=== PATIENT | male | born 1955 | race Caucasian/White ===

== ENCOUNTER 2021-08-13 01:23 | Observation (INO) | payer MEDICARE, SELFPAY ==
[2021-08-13] MEDS ORDERED: Aspirin 325 MG TAB ONE (01:54)
[2021-08-13] MEDS ORDERED: Nitroglycerin 2% Ointment 1 INCH/1 GM Packet ONE (01:54)
[2021-08-13 02:03] LABS: #Basophils 0.1 thou/uL (0.0-0.2); #Eosinphils 0.2 thou/uL (0.0-0.7); #Lymphocytes 2.3 thou/uL (1.20-3.40); #Monocytes 0.6 thou/uL (0.11-0.59); #Neutrophils 3.7 thou/uL (1.40-6.50); %Basophils 0.9 % (0.0-1.0); %Eosinophils 3.5 % (0.0-10.0); %Lymphocytes 33.2 % (21.0-51.0); %Monocytes 9.2 % (0.0-10.0); %Neutrophils 53.2 % (42.0-75.0); Hemoglobin 18.6 g/dL (14.0-18.0); Mean Corpuscular HGB CONC 35.1 g/dL (32.0-36.0); Mean Corpuscular Hemoglobin 30.8 pg (27.0-31.0); Mean Corpuscular Volume 87.6 fL (78.0-98.0); Mean Platelet Volume 8.1 fL (7.4-10.4); Platelet Count 151 thou/uL (130-400); RBC Distribution Width 12.8 % (11.5-14.5); Red Blood Cell (RBC) Count 6.05 mill/uL (4.70-6.10); White Blood Cell (WBC) Count 6.9 thou/uL (4.8-10.8)
[2021-08-13 02:22] LABS: ALT (SGPT) 20 U/L (8-55); AST (SGOT) 15 U/L (5-34); Albumin 3.5 g/dL (3.4-4.8); Alkaline Phosphatase 94 U/L (40-110); Anion Gap 13 mmol/L (10-20); BUN (Urea Nitrogen) 14 mg/dL (8.4-25.7); Calc. Creatinine Clearance 0 mL/min (70-130); Carbon Dioxide 21 mmol/L (23-31); Chloride 110 mmol/L (98-107); Globulin 2.8 g/dL (2.4-3.5); Glucose 180 mg/dL (80-115); Potassium 3.8 mmol/L (3.5-5.1); Protein, Total 6.3 g/dL (5.8-8.1); Sodium 140 mmol/L (136-145)
[2021-08-13 02:44] LABS: CKMB 2.1 ng/mL (0-6.6)
[2021-08-13] MEDS ORDERED: Nitroglycerin 0.4 MG TAB (25 Tab Bottle) SL PRN (03:16)
[2021-08-13] MEDS ORDERED: Acetaminophen 325 MG TAB PO PRN (03:16)
[2021-08-13] MEDS ORDERED: Ondansetron PF 4 MG/2 ML Vial IVP PRN (03:16)
[2021-08-13] MEDS ORDERED: HumaLOG 300 UNITS/3 ML VIAL SC PRN (03:19)
[2021-08-13] MEDS ORDERED: Dextrose 5% in Water 1,000 ML IV PRN (03:19)
[2021-08-13] MEDS ORDERED: Dextrose 50% Abboject 50 ML SYRINGE SLOW IVP PRN (03:19)
[2021-08-13 04:56] LABS: Hemoglobin A1c 8.2 % (4.0-6.0)
[2021-08-13 05:05] LABS: Anion Gap 14 mmol/L (10-20); BUN (Urea Nitrogen) 13 mg/dL (8.4-25.7); Calc. Creatinine Clearance 0 mL/min (70-130); Calcium 9.3 mg/dL (7.8-10.44); Carbon Dioxide 20 mmol/L (23-31); Cardiac Risk 5.5 (Less than 4.5); Chloride 109 mmol/L (98-107); Cholesterol 216 mg/dl (< 200 Desired); Glucose 147 mg/dL (80-115); HDL Cholesterol 39 mg/dL (>60 Neg Risk); LDL Cholesterol, Calculated 150 mg/dL; Potassium 4.1 mmol/L (3.5-5.1); Sodium 139 mmol/L (136-145); Triglycerides 136 mg/dL (Less than 150)
[2021-08-13 05:44] LABS: #Eosinphils 0.3 thou/uL (0.0-0.7); #Lymphocytes 2.6 thou/uL (1.20-3.40); #Monocytes 0.6 thou/uL (0.11-0.59); #Neutrophils 3.7 thou/uL (1.40-6.50); %Basophils 0.6 % (0.0-1.0); %Eosinophils 3.5 % (0.0-10.0); %Lymphocytes 36.4 % (21.0-51.0); %Monocytes 8.6 % (0.0-10.0); Hemoglobin 19.8 g/dL (14.0-18.0); Mean Corpuscular HGB CONC 33.2 g/dL (32.0-36.0); Mean Corpuscular Hemoglobin 30.3 pg (27.0-31.0); Mean Corpuscular Volume 91.4 fL (78.0-98.0); Mean Platelet Volume 8.7 fL (7.4-10.4); Platelet Count 152 thou/uL (130-400); RBC Distribution Width 12.8 % (11.5-14.5); Red Blood Cell (RBC) Count 6.52 mill/uL (4.70-6.10); White Blood Cell (WBC) Count 7.2 thou/uL (4.8-10.8)
[2021-08-13 06:14] LABS: Troponin I 0.051 ng/mL (< 0.028)
[2021-08-13 08:37] LABS: Troponin I 0.048 ng/mL (< 0.028)
[2021-08-13 10:01] VITALS: BMI 33.0
[2021-08-13 10:55] LABS: SARS-CoV-2 NAA Rapid Test Not Detected (NotDetected)
[2021-08-13] MEDS ORDERED: hydrALAZINE 20 MG/ML VIAL SLOW IVP SCH (11:15)
[2021-08-13] MEDS: Carvedilol 3.125 MG TAB PO SCH ×2 (14:52→17:40)
[2021-08-13] MEDS: Aspirin Chewable 81 MG TAB PO SCH (14:52)
[2021-08-13] MEDS: Enoxaparin Sodium 40 MG/0.4 ML SYRINGE SC SCH (14:52)
[2021-08-13] MEDS: HumaLOG 300 UNITS/3 ML VIAL SC PRN (17:37)
[2021-08-13] MEDS ORDERED: Atorvastatin Calcium 40 MG TAB PO SCH (21:00)
[2021-08-14 05:37] LABS: #Basophils 0.1 thou/uL (0.0-0.2); #Eosinphils 0.2 thou/uL (0.0-0.7); #Monocytes 0.7 thou/uL (0.11-0.59); #Neutrophils 3.1 thou/uL (1.40-6.50); %Basophils 1.3 % (0.0-1.0); %Eosinophils 3.5 % (0.0-10.0); %Lymphocytes 33.2 % (21.0-51.0); %Monocytes 10.9 % (0.0-10.0); %Neutrophils 51.1 % (42.0-75.0); Hemoglobin 18.5 g/dL (14.0-18.0); Mean Corpuscular HGB CONC 34.8 g/dL (32.0-36.0); Mean Corpuscular Hemoglobin 30.8 pg (27.0-31.0); Mean Corpuscular Volume 88.7 fL (78.0-98.0); Platelet Count 152 thou/uL (130-400); RBC Distribution Width 12.7 % (11.5-14.5); Red Blood Cell (RBC) Count 6.01 mill/uL (4.70-6.10); White Blood Cell (WBC) Count 6.1 thou/uL (4.8-10.8)
[2021-08-14 06:03] LABS: Anion Gap 10 mmol/L (10-20); BUN (Urea Nitrogen) 17 mg/dL (8.4-25.7); Calc. Creatinine Clearance 84 mL/min (70-130); Calcium 8.9 mg/dL (7.8-10.44); Carbon Dioxide 22 mmol/L (23-31); Chloride 105 mmol/L (98-107); Glucose 319 mg/dL (80-115); Potassium 4.2 mmol/L (3.5-5.1); Sodium 133 mmol/L (136-145)
[2021-08-14] MEDS: HumaLOG 300 UNITS/3 ML VIAL SC PRN (06:48)
[2021-08-14 07:51] VITALS: BP 133/61; TEMP 97.4
[2021-08-14] MEDS ORDERED: HumaLOG 300 UNITS/3 ML VIAL SC PRN (08:04)
[2021-08-14] MEDS: Aspirin Chewable 81 MG TAB PO SCH (08:52)
[2021-08-14] MEDS: Carvedilol 3.125 MG TAB PO SCH (08:52)
[2021-08-14] MEDS: Enoxaparin Sodium 40 MG/0.4 ML SYRINGE SC SCH (08:53)
[2021-08-14] MEDS ORDERED: NPH, Human Insulin Isophane 300 UNIT/3 ML VIAL SC SCH ×2 (09:00)
[2021-08-14] MEDS ORDERED: Loratadine 10 MG TAB PO SCH (09:00)
== END 2021-08-14 10:20 | disposition home or self-care (01) ==
LOC: ERS 01:23 → ERHOLD 03:07 → 2SW 12:13
PROVIDERS: ADMIT Internal Medicine; ATTEND Internal Medicine
DX: R07.2 Precordial pain (principal); R06.02 Shortness of breath; R42 Dizziness and giddiness; I12.9 Hypertensive chronic kidney disease with stage 1 through stage 4 chronic kidney disease, or unspecified chronic kidney disease; E11.22 Type 2 diabetes mellitus with diabetic chronic kidney disease; N18.2 Chronic kidney disease, stage 2 (mild); E78.5 Hyperlipidemia, unspecified; I25.10 Atherosclerotic heart disease of native coronary artery without angina pectoris; Z20.822 Contact with and (suspected) exposure to COVID-19; Z79.4 Long term (current) use of insulin; Z79.82 Long term (current) use of aspirin; Z95.1 Presence of aortocoronary bypass graft; Z95.5 Presence of coronary angioplasty implant and graft; Z86.73 Personal history of transient ischemic attack (TIA), and cerebral infarction without residual deficits
CPT/HCPCS: 36415; 36416; 71045; 78452; 80048; 80053; 80061; 82553; 83036; 84484; 85025; 90471; 90732; 93005; 93017; 94760; 96372; A9500; G0009; G0378; J1650; J1815; U0002

== ENCOUNTER 2021-08-16 18:50 | Inpatient (IN) | payer MEDICARE, SELFPAY ==
[~2021-08-16 18:50] MED LIST: Iopamidol 370 76% 100 ML VIAL ONE
[2021-08-16 19:21] LABS: #Basophils 0.1 thou/uL (0.0-0.2); #Eosinphils 0.2 thou/uL (0.0-0.7); #Lymphocytes 2.1 thou/uL (1.20-3.40); #Monocytes 0.7 thou/uL (0.11-0.59); #Neutrophils 5.1 thou/uL (1.40-6.50); %Basophils 0.8 % (0.0-1.0); %Eosinophils 2.8 % (0.0-10.0); %Monocytes 8.5 % (0.0-10.0); %Neutrophils 61.9 % (42.0-75.0); Hemoglobin 18.8 g/dL (14.0-18.0); Mean Corpuscular HGB CONC 34.9 g/dL (32.0-36.0); Mean Corpuscular Hemoglobin 30.7 pg (27.0-31.0); Mean Corpuscular Volume 88.1 fL (78.0-98.0); Platelet Count 171 thou/uL (130-400); RBC Distribution Width 12.6 % (11.5-14.5); Red Blood Cell (RBC) Count 6.14 mill/uL (4.70-6.10); White Blood Cell (WBC) Count 8.2 thou/uL (4.8-10.8)
[2021-08-16 19:42] LABS: ALT (SGPT) 21 U/L (8-55); AST (SGOT) 18 U/L (5-34); Albumin 3.9 g/dL (3.4-4.8); Alkaline Phosphatase 101 U/L (40-110); Anion Gap 14 mmol/L (10-20); BUN (Urea Nitrogen) 14 mg/dL (8.4-25.7); Bilirubin, Total 1.7 mg/dL (0.2-1.2); Calc. Creatinine Clearance 0 mL/min (70-130); Calcium 9.2 mg/dL (7.8-10.44); Carbon Dioxide 21 mmol/L (23-31); Chloride 105 mmol/L (98-107); Globulin 2.8 g/dL (2.4-3.5); Glucose 302 mg/dL (80-115); Lipase 29 U/L (8-78); Potassium 4.5 mmol/L (3.5-5.1); Protein, Total 6.7 g/dL (5.8-8.1); Sodium 135 mmol/L (136-145)
[2021-08-16] MEDS ORDERED: Nitroglycerin 2% Ointment 1 INCH/1 GM Packet ONE (20:02)
[2021-08-16] MEDS ORDERED: Aspirin Chewable 81 MG TAB ONE (20:29)
[2021-08-16] MEDS ORDERED: Enoxaparin Sodium 100 MG/ML SYRINGE ONE (20:29)
[2021-08-16] MEDS ORDERED: Ondansetron ODT 4 MG TAB SL PRN (20:30)
[2021-08-16] MEDS ORDERED: Ondansetron PF 4 MG/2 ML Vial IVP PRN (20:30)
[2021-08-16] MEDS ORDERED: Acetaminophen 325 MG TAB PO PRN (20:30)
[2021-08-16] MEDS ORDERED: Dextrose 5% in Water 1,000 ML IV PRN (21:55)
[2021-08-16] MEDS ORDERED: HumaLOG 300 UNITS/3 ML VIAL SC PRN (21:55)
[2021-08-16] MEDS ORDERED: Nitroglycerin 0.4 MG TAB (25 Tab Bottle) SL PRN (21:55)
[2021-08-16] MEDS ORDERED: Zolpidem Tartrate 5 MG TAB PO PRN (21:55)
[2021-08-16] MEDS ORDERED: Dextrose 50% Abboject 50 ML SYRINGE SLOW IVP PRN (21:55)
[2021-08-16] MEDS ORDERED: hydrALAZINE 20 MG/ML VIAL SLOW IVP PRN (21:55)
[2021-08-16] MEDS ORDERED: Morphine 2 MG/ML VIAL SLOW IVP PRN (21:55)
[2021-08-16 23:09] VITALS: BMI 31.6
[2021-08-16] MEDS: Sodium Chloride 0.9% 1,000 ML IV SCH (23:27)
[2021-08-17 00:02] LABS: Troponin I 0.043 ng/mL (< 0.028)
[2021-08-17 02:26] LABS: Troponin I 0.128 ng/mL (< 0.028)
[2021-08-17 05:24] LABS: #Eosinphils 0.3 thou/uL (0.0-0.7); #Lymphocytes 2.2 thou/uL (1.20-3.40); #Monocytes 0.6 thou/uL (0.11-0.59); #Neutrophils 4.1 thou/uL (1.40-6.50); %Basophils 0.5 % (0.0-1.0); %Eosinophils 3.5 % (0.0-10.0); %Lymphocytes 30.1 % (21.0-51.0); %Monocytes 8.8 % (0.0-10.0); Hemoglobin 18.1 g/dL (14.0-18.0); Mean Corpuscular HGB CONC 34.4 g/dL (32.0-36.0); Mean Corpuscular Hemoglobin 30.7 pg (27.0-31.0); Mean Corpuscular Volume 89.3 fL (78.0-98.0); Mean Platelet Volume 8.8 fL (7.4-10.4); Platelet Count 160 thou/uL (130-400); RBC Distribution Width 12.4 % (11.5-14.5); Red Blood Cell (RBC) Count 5.89 mill/uL (4.70-6.10); White Blood Cell (WBC) Count 7.1 thou/uL (4.8-10.8)
[2021-08-17 05:51] LABS: ALT (SGPT) 19 U/L (8-55); AST (SGOT) 18 U/L (5-34); Albumin 3.3 g/dL (3.4-4.8); Alkaline Phosphatase 87 U/L (40-110); Anion Gap 11 mmol/L (10-20); BUN (Urea Nitrogen) 12 mg/dL (8.4-25.7); Bilirubin, Total 1.4 mg/dL (0.2-1.2); Calc. Creatinine Clearance 90 mL/min (70-130); Calcium 8.8 mg/dL (7.8-10.44); Carbon Dioxide 21 mmol/L (23-31); Chloride 108 mmol/L (98-107); Globulin 2.9 g/dL (2.4-3.5); Glucose 140 mg/dL (80-115); Potassium 3.9 mmol/L (3.5-5.1); Protein, Total 6.2 g/dL (5.8-8.1); Sodium 136 mmol/L (136-145)
[2021-08-17] MEDS ORDERED: Enoxaparin Sodium 40 MG/0.4 ML SYRINGE SC SCH (09:00)
[2021-08-17] MEDS: Carvedilol 6.25 MG TAB PO SCH ×2 (09:15→17:43)
[2021-08-17] MEDS: Famotidine 20 MG TAB PO SCH ×2 (09:15→20:04)
[2021-08-17] MEDS: Nicotine 21 MG PATCH TD SCH (09:15)
[2021-08-17] MEDS: Aspirin Chewable 81 MG TAB PO SCH (09:15)
[2021-08-17] MEDS: Clopidogrel Bisulfate 75 MG TAB PO SCH (09:15)
[2021-08-17] MEDS: NPH, Human Insulin Isophane 300 UNIT/3 ML VIAL SC SCH ×2 (12:08→21:22)
[2021-08-17] MEDS ORDERED: Communication Order-Pharmacy FS SCH (17:00)
[2021-08-17] MEDS: Sodium Chloride 0.9% 1,000 ML IV SCH (17:44)
[2021-08-17] MEDS: Atorvastatin Calcium 40 MG TAB PO SCH (20:04)
[2021-08-17] MEDS: HumaLOG 300 UNITS/3 ML VIAL SC PRN (21:23)
[2021-08-18] MEDS: Nitroglycerin 0.4mg/Hour PATCH TD SCH (00:33)
[2021-08-18] MEDS: Sodium Chloride 0.9% 1,000 ML IV SCH ×2 (09:22→22:30)
[2021-08-18] MEDS: Famotidine 20 MG TAB PO SCH ×2 (09:22→19:52)
[2021-08-18] MEDS: Carvedilol 6.25 MG TAB PO SCH ×2 (09:22→18:03)
[2021-08-18] MEDS: Nicotine 21 MG PATCH TD SCH (09:22)
[2021-08-18] MEDS: Aspirin Chewable 81 MG TAB PO SCH (09:22)
[2021-08-18] MEDS: Clopidogrel Bisulfate 75 MG TAB PO SCH (09:22)
[2021-08-18] MEDS: NPH, Human Insulin Isophane 300 UNIT/3 ML VIAL SC SCH ×2 (11:16→21:09)
[2021-08-18] MEDS ORDERED: Iopamidol 370 76% 100 ML VIAL ONE (12:12)
[2021-08-18] MEDS ORDERED: Lidocaine 1% (PF) 30 ML VIAL ONE (14:18)
[2021-08-18] MEDS ORDERED: Midazolam HCl 2 mg/2 ml Vial ONE ×2 (14:57→16:13)
[2021-08-18] MEDS ORDERED: hydrALAZINE 20 MG/ML VIAL ONE (15:56)
[2021-08-18] MEDS ORDERED: Heparin 10,000 UNITS/ 10 ML VIAL ONE (16:09)
[2021-08-18] MEDS ORDERED: Carvedilol 3.125 MG TAB ONE (18:01)
[2021-08-18] MEDS ORDERED: Carvedilol 6.25 MG TAB ONE (18:01)
[2021-08-18] MEDS: Atorvastatin Calcium 40 MG TAB PO SCH (19:51)
[2021-08-18] MEDS: TICAGRELOR 90 MG TABLET PO SCH (19:52)
[2021-08-19] MEDS: Nitroglycerin 0.4mg/Hour PATCH TD SCH ×3 (00:07→21:56)
[2021-08-19] MEDS ORDERED: Sodium Chloride 0.65% Nasal 44 ML BOT EA NARE PRN (01:27)
[2021-08-19 05:00] LABS: #Eosinphils 0.2 thou/uL (0.0-0.7); #Lymphocytes 1.5 thou/uL (1.20-3.40); #Monocytes 0.7 thou/uL (0.11-0.59); #Neutrophils 5.4 thou/uL (1.40-6.50); %Basophils 0.6 % (0.0-1.0); %Eosinophils 2.1 % (0.0-10.0); %Lymphocytes 19.8 % (21.0-51.0); %Monocytes 8.8 % (0.0-10.0); %Neutrophils 68.7 % (42.0-75.0); Hemoglobin 18.1 g/dL (14.0-18.0); Mean Corpuscular HGB CONC 34.9 g/dL (32.0-36.0); Mean Corpuscular Hemoglobin 31.1 pg (27.0-31.0); Mean Corpuscular Volume 89.1 fL (78.0-98.0); Mean Platelet Volume 8.5 fL (7.4-10.4); Platelet Count 157 thou/uL (130-400); RBC Distribution Width 12.2 % (11.5-14.5); Red Blood Cell (RBC) Count 5.81 mill/uL (4.70-6.10); White Blood Cell (WBC) Count 7.8 thou/uL (4.8-10.8)
[2021-08-19 05:22] LABS: ALT (SGPT) 19 U/L (8-55); AST (SGOT) 14 U/L (5-34); Albumin 3.3 g/dL (3.4-4.8); Alkaline Phosphatase 85 U/L (40-110); Anion Gap 13 mmol/L (10-20); BUN (Urea Nitrogen) 15 mg/dL (8.4-25.7); Bilirubin, Total 1.5 mg/dL (0.2-1.2); Calc. Creatinine Clearance 80 mL/min (70-130); Calcium 9.1 mg/dL (7.8-10.44); Carbon Dioxide 18 mmol/L (23-31); Chloride 109 mmol/L (98-107); Glucose 256 mg/dL (80-115); Potassium 4.2 mmol/L (3.5-5.1); Protein, Total 6.3 g/dL (5.8-8.1); Sodium 136 mmol/L (136-145)
[2021-08-19] MEDS: HumaLOG 300 UNITS/3 ML VIAL SC PRN (07:19)
[2021-08-19] MEDS ORDERED: Carvedilol 6.25 MG TAB PO SCH (08:15)
[2021-08-19] MEDS: Sodium Chloride 0.9% 1,000 ML IV SCH ×2 (09:03→19:48)
[2021-08-19] MEDS: TICAGRELOR 90 MG TABLET PO SCH (09:04)
[2021-08-19] MEDS: Empagliflozin 10 MG TAB PO SCH (09:04)
[2021-08-19] MEDS: Aspirin Chewable 81 MG TAB PO SCH (09:04)
[2021-08-19] MEDS: Nicotine 21 MG PATCH TD SCH (09:04)
[2021-08-19] MEDS: Famotidine 20 MG TAB PO SCH ×2 (09:04→19:43)
[2021-08-19] MEDS: Carvedilol 6.25 MG TAB PO SCH ×2 (09:10→16:08)
[2021-08-19] MEDS: NPH, Human Insulin Isophane 300 UNIT/3 ML VIAL SC SCH ×2 (12:26→21:17)
[2021-08-19] MEDS: Atorvastatin Calcium 40 MG TAB PO SCH (19:43)
[2021-08-20 07:22] VITALS: TEMP 98.1
[2021-08-20] MEDS: Aspirin Chewable 81 MG TAB PO SCH (08:37)
[2021-08-20] MEDS: Carvedilol 6.25 MG TAB PO SCH (08:39)
[2021-08-20] MEDS: Empagliflozin 10 MG TAB PO SCH (08:39)
[2021-08-20] MEDS: Famotidine 20 MG TAB PO SCH (08:39)
[2021-08-20 08:40] VITALS: BP 135/94
[2021-08-20] MEDS: Nicotine 21 MG PATCH TD SCH (08:40)
[2021-08-20] MEDS: NPH, Human Insulin Isophane 300 UNIT/3 ML VIAL SC SCH (08:46)
[2021-08-20] MEDS ORDERED: Lisinopril 5 MG TAB PO SCH (09:00)
[2021-08-20] MEDS ORDERED: Clopidogrel Bisulfate 75 MG TAB PO SCH (09:00)
== END 2021-08-20 11:25 | disposition home or self-care (01) | DRG 247 ==
LOC: ERS 18:50 → 2SW 20:23 → OBSVTOIN 08-17 16:56
PROVIDERS: ADMIT Internal Medicine; ATTEND Internal Medicine
PROC: 027034Z Dilation of Coronary Artery, One Artery with Drug-eluting Intraluminal Device, Percutaneous Approach (ICD-10-PCS; principal; 2021-08-18)
PROC: 4A023N7 Measurement of Cardiac Sampling and Pressure, Left Heart, Percutaneous Approach (ICD-10-PCS; 2021-08-18)
PROC: B2151ZZ Fluoroscopy of Left Heart using Low Osmolar Contrast (ICD-10-PCS; 2021-08-18)
PROC: B2131ZZ Fluoroscopy of Multiple Coronary Artery Bypass Grafts using Low Osmolar Contrast (ICD-10-PCS; 2021-08-18)
DX: I25.10 Atherosclerotic heart disease of native coronary artery without angina pectoris (principal); N17.9 Acute kidney failure, unspecified; Z20.822 Contact with and (suspected) exposure to COVID-19; M79.642 Pain in left hand; M79.641 Pain in right hand; N18.30 Chronic kidney disease, stage 3 unspecified; E11.22 Type 2 diabetes mellitus with diabetic chronic kidney disease; I12.9 Hypertensive chronic kidney disease with stage 1 through stage 4 chronic kidney disease, or unspecified chronic kidney disease; N28.89 Other specified disorders of kidney and ureter; E78.5 Hyperlipidemia, unspecified; I44.0 Atrioventricular block, first degree; I44.7 Left bundle-branch block, unspecified; F17.220 Nicotine dependence, chewing tobacco, uncomplicated; Z95.1 Presence of aortocoronary bypass graft; I69.311 Memory deficit following cerebral infarction; Z79.4 Long term (current) use of insulin; Z79.82 Long term (current) use of aspirin; Z79.899 Other long term (current) drug therapy; Z95.5 Presence of coronary angioplasty implant and graft; I25.2 Old myocardial infarction; Z98.890 Other specified postprocedural states; H54.7 Unspecified visual loss; R09.81 Nasal congestion
CPT/HCPCS: 36415; 36416; 71045; 71275; 74174; 78452; 80048; 80053; 80061; 82553; 83036; 83690; 84484; 85025; 85347; 90471; 90732; 92928; 93005; 93010; 93017; 93459; 93798; 94760; 96372; 99152; 99153; A9500; C1874; C9600; G0009; G0378; J0360; J1644; J1650; J1815; J2001; J2250; J7050; Q9967; U0002

== ENCOUNTER 2021-11-13 06:12 | Emergency (ER) | payer MEDICARE ==
[2021-11-13 07:23] LABS: #Eosinphils 0.1 thou/uL (0.0-0.7); #Lymphocytes 1.1 thou/uL (1.20-3.40); #Monocytes 0.6 thou/uL (0.11-0.59); #Neutrophils 8.5 thou/uL (1.40-6.50); %Basophils 0.3 % (0.0-1.0); %Eosinophils 0.6 % (0.0-10.0); %Lymphocytes 10.7 % (21.0-51.0); %Monocytes 5.7 % (0.0-10.0); %Neutrophils 82.7 % (42.0-75.0); Mean Corpuscular HGB CONC 34.4 g/dL (32.0-36.0); Mean Corpuscular Hemoglobin 30.6 pg (27.0-31.0); Mean Corpuscular Volume 88.7 fL (78.0-98.0); Mean Platelet Volume 8.8 fL (7.4-10.4); Platelet Count 166 thou/uL (130-400); RBC Distribution Width 12.9 % (11.5-14.5); Red Blood Cell (RBC) Count 6.22 mill/uL (4.70-6.10); White Blood Cell (WBC) Count 10.3 thou/uL (4.8-10.8)
[2021-11-13] MEDS ORDERED: Ondansetron PF 4 MG/2 ML Vial ONE (07:25)
[2021-11-13] MEDS ORDERED: Fentanyl 100 MCG/2 ML VIAL ONE ×2 (07:25→08:49)
[2021-11-13 07:39] LABS: ALT (SGPT) 14 U/L (8-55); AST (SGOT) 17 U/L (5-34); Albumin 3.7 g/dL (3.4-4.8); Alkaline Phosphatase 94 U/L (40-110); Anion Gap 19 mmol/L (10-20); BUN (Urea Nitrogen) 12 mg/dL (8.4-25.7); Bilirubin, Total 1.3 mg/dL (0.2-1.2); Calc. Creatinine Clearance 0 mL/min (70-130); Carbon Dioxide 22 mmol/L (23-31); Chloride 106 mmol/L (98-107); Estimated GFR 64; Globulin 2.7 g/dL (2.4-3.5); Glucose 115 mg/dL (80-115); Potassium 3.6 mmol/L (3.5-5.1); Protein, Total 6.4 g/dL (5.8-8.1); Sodium 143 mmol/L (136-145)
[2021-11-13] MEDS ORDERED: Ketorolac Tromethamine 30 MG/ML VIAL ONE (08:16)
[2021-11-13] MEDS ORDERED: Lidocaine 1% MPF 2 ML VIAL ONE (09:37)
[2021-11-13] MEDS ORDERED: Lidocaine 1% PF 5 ML VIAL ONE (09:40)
== END 2021-11-13 10:17 | disposition home or self-care (01) ==
LOC: ERS 06:12
DX: S42.212A Unspecified displaced fracture of surgical neck of left humerus, initial encounter for closed fracture (principal); S01.511A Laceration without foreign body of lip, initial encounter; I25.2 Old myocardial infarction; E11.9 Type 2 diabetes mellitus without complications; F17.220 Nicotine dependence, chewing tobacco, uncomplicated; W19.XXXA Unspecified fall, initial encounter
CPT/HCPCS: 12011; 36415; 70450; 71045; 80053; 85025; 93005; 96374; 96375; 96376; J1885; J2405; J3010

== ENCOUNTER 2021-11-14 13:25 | Emergency (ER) | payer MEDICARE ==
[2021-11-14] MEDS ORDERED: Ketorolac Tromethamine 30 MG/ML VIAL ONE (13:57)
== END 2021-11-14 14:40 | disposition home or self-care (01) ==
LOC: ERS 13:25
DX: S42.202A Unspecified fracture of upper end of left humerus, initial encounter for closed fracture (principal); I25.2 Old myocardial infarction; E11.9 Type 2 diabetes mellitus without complications; I10 Essential (primary) hypertension; F17.220 Nicotine dependence, chewing tobacco, uncomplicated; Z86.73 Personal history of transient ischemic attack (TIA), and cerebral infarction without residual deficits; Z79.4 Long term (current) use of insulin
CPT/HCPCS: 96374; J1885

== ENCOUNTER 2021-11-16 23:15 | Emergency (ER) | payer MEDICARE ==
[2021-11-17 00:05] LABS: #Eosinphils 0.1 thou/uL (0.0-0.7); #Lymphocytes 1.3 thou/uL (1.20-3.40); #Monocytes 0.9 thou/uL (0.11-0.59); #Neutrophils 6.2 thou/uL (1.40-6.50); %Basophils 0.1 % (0.0-1.0); %Eosinophils 1.7 % (0.0-10.0); %Lymphocytes 15.4 % (21.0-51.0); %Monocytes 10.6 % (0.0-10.0); %Neutrophils 72.2 % (42.0-75.0); Hemoglobin 16.7 g/dL (14.0-18.0); Mean Corpuscular HGB CONC 34.7 g/dL (32.0-36.0); Mean Corpuscular Hemoglobin 30.9 pg (27.0-31.0); Mean Corpuscular Volume 89.2 fL (78.0-98.0); Mean Platelet Volume 8.4 fL (7.4-10.4); Platelet Count 161 thou/uL (130-400); RBC Distribution Width 12.7 % (11.5-14.5); Red Blood Cell (RBC) Count 5.39 mill/uL (4.70-6.10); White Blood Cell (WBC) Count 8.6 thou/uL (4.8-10.8)
[2021-11-17 00:30] LABS: ALT (SGPT) 17 U/L (8-55); AST (SGOT) 19 U/L (5-34); Albumin 3.8 g/dL (3.4-4.8); Alkaline Phosphatase 84 U/L (40-110); Anion Gap 15 mmol/L (10-20); BUN (Urea Nitrogen) 13 mg/dL (8.4-25.7); Bilirubin, Total 1.9 mg/dL (0.2-1.2); Calc. Creatinine Clearance 0 mL/min (70-130); Calcium 9.5 mg/dL (7.8-10.44); Carbon Dioxide 26 mmol/L (23-31); Chloride 103 mmol/L (98-107); Estimated GFR 58; Globulin 3.5 g/dL (2.4-3.5); Glucose 60 mg/dL (80-115); Potassium 3.6 mmol/L (3.5-5.1); Protein, Total 7.3 g/dL (5.8-8.1); Sodium 140 mmol/L (136-145)
[2021-11-17 01:40] LABS: Bilirubin Negative (Negative); Blood, Urine 1+ (Negative); Clarity Clear (Clear); Glucose, Urine (Dipstick) 70 mg/dL (Negative); Ketone, Urine Negative (Negative); Leukocyte Negative Leu/uL (Negative); Nitrite Negative (Negative); Protein, Urine (Dipstick) 300 mg/dL (Neg-Trace); RBC/HPF 0-3 HPF (0-3); Specific Gravity, Urine 1.023 (1.002-1.036); Squamous Epithelial None Seen HPF (0-3); WBC/HPF 0-3 HPF (0-3)
[2021-11-17 01:41] LABS: Bacteria/HPF 1+ HPF (None Seen)
[2021-11-17] MEDS ORDERED: HYDROcodone/Acetaminophen 5/325 mg Tablet ONE (01:53)
== END 2021-11-17 02:20 | disposition home or self-care (01) ==
LOC: ERS 23:15
DX: S40.012A Contusion of left shoulder, initial encounter (principal); S20.219A Contusion of unspecified front wall of thorax, initial encounter; E16.2 Hypoglycemia, unspecified
CPT/HCPCS: 36415; 36416; 71045; 80053; 81003; 81015; 84484; 85025; 93005

== ENCOUNTER 2021-11-19 12:51 | Emergency (ER) | payer MEDICARE ==
[2021-11-19] MEDS ORDERED: Morphine 4 MG/ML VIAL ONE (13:49)
[2021-11-19] MEDS ORDERED: Ondansetron PF 4 MG/2 ML Vial ONE (13:49)
== END 2021-11-19 16:35 | disposition home or self-care (01) ==
LOC: ERS 12:51
DX: M25.561 Pain in right knee (principal); R29.6 Repeated falls; I10 Essential (primary) hypertension; E11.9 Type 2 diabetes mellitus without complications; I25.2 Old myocardial infarction; E78.00 Pure hypercholesterolemia, unspecified
CPT/HCPCS: 96374; 96375; J2270; J2405

== ENCOUNTER 2022-01-28 15:02 | Emergency (ER) | payer MEDICARE ==
[2022-01-28] MEDS ORDERED: Morphine 4 MG/ML VIAL ONE (15:51)
== END 2022-01-28 16:53 | disposition home or self-care (01) ==
LOC: ERS 15:02
DX: M25.562 Pain in left knee (principal); E11.9 Type 2 diabetes mellitus without complications; I10 Essential (primary) hypertension; E78.00 Pure hypercholesterolemia, unspecified; W18.30XA Fall on same level, unspecified, initial encounter
CPT/HCPCS: 96372; J2270

== ENCOUNTER 2022-02-14 20:49 | Inpatient (IN) | payer MEDICARE, MEDICAID ==
[2022-02-14] MEDS ORDERED: Morphine 4 MG/ML VIAL ONE ×2 (22:12→22:40)
[2022-02-14 22:26] LABS: #Basophils 0.1 thou/uL (0.0-0.2); #Eosinphils 0.2 thou/uL (0.0-0.7); #Lymphocytes 1.9 thou/uL (1.20-3.40); #Monocytes 0.8 thou/uL (0.11-0.59); #Neutrophils 5.1 thou/uL (1.40-6.50); %Basophils 0.9 % (0.0-1.0); %Lymphocytes 23.3 % (21.0-51.0); %Monocytes 9.7 % (0.0-10.0); %Neutrophils 64.1 % (42.0-75.0); Hemoglobin 15.5 g/dL (14.0-18.0); Mean Corpuscular HGB CONC 33.1 g/dL (32.0-36.0); Mean Corpuscular Hemoglobin 29.5 pg (27.0-31.0); Mean Corpuscular Volume 89.3 fl (78.0-98.0); Mean Platelet Volume 9.4 fL (7.4-10.4); Platelet Count 196 10x3/uL (130-400); RBC Distribution Width 15.6 % (11.5-14.5); Red Blood Cell (RBC) Count 5.24 mill/uL (4.70-6.10)
[2022-02-14 22:46] LABS: ALT (SGPT) 11 U/L (8-55); AST (SGOT) 12 U/L (5-34); Alkaline Phosphatase 126 U/L (40-110); Anion Gap 15 mmol/L (10-20); BUN (Urea Nitrogen) 12 mg/dL (8.4-25.7); Bilirubin, Total 0.8 mg/dL (0.2-1.2); CRP (Inflammatory) 5.05 mg/dL (= or < 0.5); Calc. Creatinine Clearance 0 mL/min (70-130); Calcium 9.4 mg/dL (7.8-10.44); Carbon Dioxide 23 mmol/L (23-31); Chloride 103 mmol/L (98-107); Estimated GFR 65; Globulin 3.9 g/dL (2.4-3.5); Glucose 354 mg/dL (80-115); Potassium 4.1 mmol/L (3.5-5.1); Protein, Total 7.9 g/dL (5.8-8.1); Sodium 137 mmol/L (136-145)
[2022-02-14] MEDS ORDERED: Lidocaine 1% PF 5 ML VIAL ONE (23:25)
[2022-02-14] MEDS ORDERED: Ketorolac Tromethamine 30 MG/ML VIAL ONE (23:27)
[2022-02-14] MEDS ORDERED: cefTRIAXone\\ROCEPHIN 2 GM VIAL ONE (23:39)
[2022-02-15] MEDS ORDERED: Vancomycin 1 GM/200 ML (FROZEN) BAG ONE ×2 (00:08→04:36)
[2022-02-15 00:14] LABS: RBC Count-Automated (BF) 394190 /cu.mm
[2022-02-15 00:22] LABS: BF Color Red; Body Fluid Source Synovial Fluid; Clarity Cloudy/Turbid (Clear); Tube # EDTA; WBC/Nucleated-Auto (BF) Greater than 51000 /cu.mm
[2022-02-15] MEDS ORDERED: FENTANYL 50 MCG/ML 1 ML VIAL ONE ×2 (00:45→15:49)
[2022-02-15 00:49] LABS: BF Segmented Neutrophils 94 %; Cell Count Non Hematic 6 %
[2022-02-15] MEDS ORDERED: Ondansetron ODT 4 MG TAB SL PRN (01:30)
[2022-02-15] MEDS ORDERED: Acetaminophen 325 MG TAB PO PRN (01:30)
[2022-02-15] MEDS ORDERED: Sodium Chloride 0.9% 1,000 ML IV SCH (01:30)
[2022-02-15] MEDS ORDERED: Ondansetron PF 4 MG/2 ML Vial IVP PRN (01:30)
[2022-02-15] MEDS ORDERED: Dextrose 50% Abboject 50 ML SYRINGE SLOW IVP PRN (01:43)
[2022-02-15] MEDS ORDERED: Dextrose 5% in Water 1,000 ML IV PRN (01:43)
[2022-02-15] MEDS ORDERED: Calcium Carbonate 500 MG ChewTAB PO PRN (01:43)
[2022-02-15] MEDS ORDERED: Cefepime 2 GM VIAL ONE (02:04)
[2022-02-15 02:24] VITALS: BMI 27.6
[2022-02-15] MEDS ORDERED: Cefepime 2 GM in Sodium Chloride 0.9% 100 ML IVPB SCH (03:15)
[2022-02-15] MEDS ORDERED: Vancomycin 1 GM in Premix Bag 1 BAG IVPB SCH (03:45)
[2022-02-15] MEDS ORDERED: Naproxen 500 MG TAB ONE (04:35)
[2022-02-15] MEDS ORDERED: Naproxen 500 MG TAB PO SCH (04:45)
[2022-02-15] MEDS ORDERED: Morphine 4 MG/ML VIAL ONE ×3 (05:00→13:55)
[2022-02-15] MEDS: Morphine 4 MG/ML VIAL SLOW IVP PRN ×3 (05:08→14:05)
[2022-02-15 07:19] LABS: Hemoglobin A1c 7.3 % (4.0-6.0)
[2022-02-15 08:01] LABS: Anion Gap 13 mmol/L (10-20); BUN (Urea Nitrogen) 15 mg/dL (8.4-25.7); Calc. Creatinine Clearance 86 mL/min (70-130); Calcium 8.3 mg/dL (7.8-10.44); Carbon Dioxide 20 mmol/L (23-31); Chloride 105 mmol/L (98-107); Estimated GFR 83; Glucose 250 mg/dL (80-115); Potassium 3.7 mmol/L (3.5-5.1); Sodium 134 mmol/L (136-145)
[2022-02-15 10:47] LABS: #Eosinphils 0.2 thou/uL (0.0-0.7); #Lymphocytes 1.7 thou/uL (1.20-3.40); #Monocytes 1.1 thou/uL (0.11-0.59); #Neutrophils 4.3 thou/uL (1.40-6.50); %Basophils 0.1 % (0.0-1.0); %Eosinophils 3.1 % (0.0-10.0); %Lymphocytes 23.5 % (21.0-51.0); %Monocytes 14.5 % (0.0-10.0); %Neutrophils 58.8 % (42.0-75.0); Hemoglobin 14.3 g/dL (14.0-18.0); Mean Corpuscular HGB CONC 33.2 g/dL (32.0-36.0); Mean Corpuscular Hemoglobin 29.7 pg (27.0-31.0); Mean Corpuscular Volume 89.5 fl (78.0-98.0); Mean Platelet Volume 8.5 fL (7.4-10.4); Platelet Count 173 10x3/uL (130-400); RBC Distribution Width 15.1 % (11.5-14.5); Red Blood Cell (RBC) Count 4.81 mill/uL (4.70-6.10); White Blood Cell (WBC) Count 7.4 10x3/uL (4.8-10.8)
[2022-02-15] MEDS ORDERED: Enoxaparin Sodium 40 MG/0.4 ML SYRINGE ONE (11:08)
[2022-02-15] MEDS: Enoxaparin Sodium 40 MG/0.4 ML SYRINGE SC SCH (11:15)
[2022-02-15] MEDS: Gabapentin 300 MG CAP PO SCH ×3 (11:21→20:10)
[2022-02-15] MEDS ORDERED: Morphine 4 MG/ML VIAL SLOW IVP PRN (12:30)
[2022-02-15] MEDS ORDERED: HumaLOG 300 UNITS/3 ML VIAL ONE (12:55)
[2022-02-15] MEDS: HumaLOG 300 UNITS/3 ML VIAL SC PRN (13:00)
[2022-02-15 13:46] LABS: Synovial Fluid, Protein 3.6 g/dL (Not Available); Synovial Fluid, Uric Acid 7.7 mg/dL (Not Available)
[2022-02-15] MEDS ORDERED: Cefepime 1 GM VIAL ONE (13:55)
[2022-02-15] MEDS: Cefepime 1 GM in Sodium Chloride 0.9% 100 ML IVPB SCH (14:05)
[2022-02-15] MEDS ORDERED: hydrALAZINE 20 MG/ML VIAL SLOW IVP SCH (14:30)
[2022-02-15] MEDS ORDERED: hydrALAZINE 20 MG/ML VIAL ONE (15:02)
[2022-02-15] MEDS ORDERED: Colchicine 0.6 MG TAB PO SCH ×2 (15:30→21:00)
[2022-02-15] MEDS ORDERED: FENTANYL 50 MCG/ML 1 ML VIAL SLOW IVP SCH (15:45)
[2022-02-15] MEDS ORDERED: Lisinopril 10 MG TAB PO SCH (15:45)
[2022-02-15] MEDS: FENTANYL 50 MCG/ML 1 ML VIAL SLOW IVP PRN ×3 (17:56→22:12)
[2022-02-15] MEDS: Famotidine 20 MG TAB PO SCH (20:10)
[2022-02-15] MEDS: Naproxen 500 MG TAB PO SCH (20:10)
[2022-02-15] MEDS ORDERED: NPH, Human Insulin Isophane 300 UNIT/3 ML VIAL SC SCH (21:00)
[2022-02-15] MEDS ORDERED: Insulin NPH Human Isophane 100 UNIT/ML (10 ML VIAL) SC SCH (21:00)
[2022-02-16] MEDS: FENTANYL 50 MCG/ML 1 ML VIAL SLOW IVP PRN ×9 (00:24→21:28)
[2022-02-16] MEDS: VANCOMYCIN 1.75 GM/500 ML BAG 1.75 GM in Premix Bag 1 BAG IVPB SCH (00:24)
[2022-02-16] MEDS: Cefepime 1 GM in Sodium Chloride 0.9% 100 ML IVPB SCH (03:47)
[2022-02-16 06:36] LABS: #Eosinphils 0.2 thou/uL (0.0-0.7); #Lymphocytes 1.9 thou/uL (1.20-3.40); #Monocytes 1.2 thou/uL (0.11-0.59); #Neutrophils 4.9 thou/uL (1.40-6.50); %Basophils 0.4 % (0.0-1.0); %Eosinophils 2.5 % (0.0-10.0); %Lymphocytes 23.3 % (21.0-51.0); %Neutrophils 59.7 % (42.0-75.0); Hemoglobin 12.9 g/dL (14.0-18.0); Mean Corpuscular HGB CONC 33.6 g/dL (32.0-36.0); Mean Corpuscular Volume 89.3 fl (78.0-98.0); Mean Platelet Volume 8.9 fL (7.4-10.4); Platelet Count 164 10x3/uL (130-400); RBC Distribution Width 14.8 % (11.5-14.5); Red Blood Cell (RBC) Count 4.31 mill/uL (4.70-6.10); White Blood Cell (WBC) Count 8.2 10x3/uL (4.8-10.8)
[2022-02-16 06:59] LABS: Anion Gap 10 mmol/L (10-20); BUN (Urea Nitrogen) 12 mg/dL (8.4-25.7); Calc. Creatinine Clearance 106 mL/min (70-130); Calcium 8.5 mg/dL (7.8-10.44); Carbon Dioxide 22 mmol/L (23-31); Chloride 105 mmol/L (98-107); Estimated GFR 96; Glucose 119 mg/dL (80-115); Potassium 3.5 mmol/L (3.5-5.1); Sodium 133 mmol/L (136-145)
[2022-02-16] MEDS: Aspirin Chewable 81 MG TAB PO SCH (08:26)
[2022-02-16] MEDS: Lisinopril 10 MG TAB PO SCH (08:27)
[2022-02-16] MEDS: Famotidine 20 MG TAB PO SCH ×2 (08:27→21:24)
[2022-02-16] MEDS: Clopidogrel Bisulfate 75 MG TAB PO SCH (08:27)
[2022-02-16] MEDS: Enoxaparin Sodium 40 MG/0.4 ML SYRINGE SC SCH (08:28)
[2022-02-16] MEDS: Insulin NPH Human Isophane 100 UNIT/ML (10 ML VIAL) SC SCH ×2 (08:28→21:25)
[2022-02-16] MEDS: Gabapentin 300 MG CAP PO SCH ×3 (08:29→21:24)
[2022-02-16] MEDS: Naproxen 500 MG TAB PO SCH ×2 (08:29→21:24)
[2022-02-16] MEDS ORDERED: FLU VACC QS2022-23(65YR UP)/PF 240 MCG/0.7 ML SYRINGE IM ONE (09:00)
[2022-02-16] MEDS: Cefepime 2 GM in Sodium Chloride 0.9% 100 ML IVPB SCH (14:12)
[2022-02-17 00:09] LABS: Vancomycin, Trough 9.6 ug/mL
[2022-02-17] MEDS: FENTANYL 50 MCG/ML 1 ML VIAL SLOW IVP PRN ×3 (00:15→06:48)
[2022-02-17] MEDS: VANCOMYCIN 1.75 GM/500 ML BAG 1.75 GM in Premix Bag 1 BAG IVPB SCH (00:41)
[2022-02-17] MEDS: Vancomycin 1 GM in Premix Bag 1 BAG IVPB SCH ×2 (00:44→12:07)
[2022-02-17] MEDS: Cefepime 2 GM in Sodium Chloride 0.9% 100 ML IVPB SCH ×2 (03:01→20:59)
[2022-02-17 05:58] LABS: #Eosinphils 0.2 thou/uL (0.0-0.7); #Lymphocytes 1.7 thou/uL (1.20-3.40); #Neutrophils 4.8 thou/uL (1.40-6.50); %Basophils 0.4 % (0.0-1.0); %Eosinophils 2.5 % (0.0-10.0); %Lymphocytes 22.3 % (21.0-51.0); %Monocytes 12.3 % (0.0-10.0); %Neutrophils 62.5 % (42.0-75.0); Hemoglobin 12.6 g/dL (14.0-18.0); Mean Corpuscular HGB CONC 33.5 g/dL (32.0-36.0); Mean Corpuscular Hemoglobin 29.7 pg (27.0-31.0); Mean Corpuscular Volume 88.7 fl (78.0-98.0); Mean Platelet Volume 9.3 fL (7.4-10.4); Platelet Count 160 10x3/uL (130-400); RBC Distribution Width 14.5 % (11.5-14.5); Red Blood Cell (RBC) Count 4.23 mill/uL (4.70-6.10); White Blood Cell (WBC) Count 7.8 10x3/uL (4.8-10.8)
[2022-02-17 06:14] LABS: Anion Gap 8 mmol/L (10-20); BUN (Urea Nitrogen) 13 mg/dL (8.4-25.7); Calc. Creatinine Clearance 109 mL/min (70-130); Calcium 8.9 mg/dL (7.8-10.44); Carbon Dioxide 25 mmol/L (23-31); Chloride 106 mmol/L (98-107); Estimated GFR 97; Glucose 97 mg/dL (80-115); Potassium 3.4 mmol/L (3.5-5.1); Sodium 136 mmol/L (136-145)
[2022-02-17] MEDS ORDERED: Potassium Chloride 20 MEQ TAB PO SCH (06:30)
[2022-02-17] MEDS ORDERED: HYDROcodone/Acetaminophen 5/325 mg Tablet PO PRN ×2 (07:51→12:10)
[2022-02-17] MEDS ORDERED: FENTANYL 50 MCG/ML 1 ML VIAL SLOW IVP PRN ×3 (07:52→12:10)
[2022-02-17] MEDS ORDERED: predniSONE 20 MG TAB PO SCH (08:00)
[2022-02-17] MEDS: Aspirin Chewable 81 MG TAB PO SCH (08:05)
[2022-02-17] MEDS: Enoxaparin Sodium 40 MG/0.4 ML SYRINGE SC SCH (08:06)
[2022-02-17] MEDS: Clopidogrel Bisulfate 75 MG TAB PO SCH (08:06)
[2022-02-17] MEDS: Lisinopril 10 MG TAB PO SCH (08:06)
[2022-02-17] MEDS: Naproxen 500 MG TAB PO SCH ×2 (08:07→20:58)
[2022-02-17] MEDS: Gabapentin 300 MG CAP PO SCH ×3 (08:07→20:58)
[2022-02-17] MEDS: Famotidine 20 MG TAB PO SCH ×2 (08:07→20:58)
[2022-02-17] MEDS: Insulin NPH Human Isophane 100 UNIT/ML (10 ML VIAL) SC SCH (08:12)
[2022-02-17] MEDS ORDERED: Colchicine 0.6 MG TAB PO SCH ×3 (13:15→15:00)
[2022-02-17] MEDS: HumaLOG 300 UNITS/3 ML VIAL SC PRN ×2 (16:26→21:06)
[2022-02-17] MEDS ORDERED: Vancomycin 1 GM in Premix Bag 1 BAG IVPB SCH (21:00)
[2022-02-18] MEDS: Vancomycin 1 GM in Premix Bag 1 BAG IVPB SCH ×2 (01:05→13:24)
[2022-02-18 05:10] LABS: #Eosinphils 0.1 thou/uL (0.0-0.7); #Lymphocytes 1.7 thou/uL (1.20-3.40); #Monocytes 0.8 thou/uL (0.11-0.59); #Neutrophils 5.2 thou/uL (1.40-6.50); %Basophils 0.3 % (0.0-1.0); %Eosinophils 1.2 % (0.0-10.0); %Lymphocytes 22.3 % (21.0-51.0); %Neutrophils 66.2 % (42.0-75.0); Hemoglobin 12.6 g/dL (14.0-18.0); Mean Corpuscular HGB CONC 34.3 g/dL (32.0-36.0); Mean Corpuscular Hemoglobin 30.5 pg (27.0-31.0); Mean Corpuscular Volume 88.8 fl (78.0-98.0); Mean Platelet Volume 8.9 fL (7.4-10.4); Platelet Count 181 10x3/uL (130-400); RBC Distribution Width 14.4 % (11.5-14.5); Red Blood Cell (RBC) Count 4.13 mill/uL (4.70-6.10); White Blood Cell (WBC) Count 7.8 10x3/uL (4.8-10.8)
[2022-02-18 05:32] LABS: Anion Gap 12 mmol/L (10-20); BUN (Urea Nitrogen) 21 mg/dL (8.4-25.7); Calc. Creatinine Clearance 97 mL/min (70-130); Calcium 8.9 mg/dL (7.8-10.44); Carbon Dioxide 20 mmol/L (23-31); Chloride 108 mmol/L (98-107); Estimated GFR 94; Glucose 241 mg/dL (80-115); Potassium 3.7 mmol/L (3.5-5.1); Sodium 136 mmol/L (136-145)
[2022-02-18] MEDS: HumaLOG 300 UNITS/3 ML VIAL SC PRN ×2 (05:45→21:58)
[2022-02-18] MEDS: Cefepime 2 GM in Sodium Chloride 0.9% 100 ML IVPB SCH ×2 (08:45→20:50)
[2022-02-18] MEDS: Famotidine 20 MG TAB PO SCH ×2 (08:45→20:48)
[2022-02-18] MEDS: Lisinopril 10 MG TAB PO SCH (08:46)
[2022-02-18] MEDS: Naproxen 500 MG TAB PO SCH ×2 (08:55→20:47)
[2022-02-18] MEDS: Gabapentin 300 MG CAP PO SCH ×4 (08:55→20:48)
[2022-02-18] MEDS: Clopidogrel Bisulfate 75 MG TAB PO SCH (11:41)
[2022-02-18] MEDS: Aspirin Chewable 81 MG TAB PO SCH (11:41)
[2022-02-18] MEDS ORDERED: PROPOFOL 200 MG/20 ML VIAL ONE (13:35)
[2022-02-18] MEDS ORDERED: Ondansetron PF 4 MG/2 ML Vial ONE (13:35)
[2022-02-18 13:44] LABS: Vancomycin, Trough 13.7 ug/mL
[2022-02-18] MEDS ORDERED: fentaNYL PF 100 MCG/2 ML SYRINGE ONE (14:02)
[2022-02-18] MEDS ORDERED: Promethazine HCl 25 MG/ML VIAL IVPB PRN (14:37)
[2022-02-18] MEDS ORDERED: Ondansetron HCl/PF 4 MG/2 ML Vial IVP PRN (14:37)
[2022-02-18] MEDS ORDERED: Promethazine HCl 25 MG/ML VIAL IM PRN (14:37)
[2022-02-18] MEDS ORDERED: FENTANYL 50 MCG/ML 1 ML VIAL ONE ×3 (14:41→15:38)
[2022-02-19] MEDS: Vancomycin 1 GM in Premix Bag 1 BAG IVPB SCH ×2 (00:44→12:03)
[2022-02-19] MEDS: HumaLOG 300 UNITS/3 ML VIAL SC PRN ×3 (05:17→22:55)
[2022-02-19 05:50] LABS: #Eosinphils 0.1 thou/uL (0.0-0.7); #Lymphocytes 1.7 thou/uL (1.20-3.40); #Monocytes 0.4 thou/uL (0.11-0.59); #Neutrophils 2.9 thou/uL (1.40-6.50); %Basophils 0.7 % (0.0-1.0); %Eosinophils 2.4 % (0.0-10.0); %Lymphocytes 32.4 % (21.0-51.0); %Monocytes 8.1 % (0.0-10.0); %Neutrophils 56.4 % (42.0-75.0); Hemoglobin 12.3 g/dL (14.0-18.0); Mean Corpuscular HGB CONC 32.5 g/dL (32.0-36.0); Mean Corpuscular Hemoglobin 29.2 pg (27.0-31.0); Mean Corpuscular Volume 89.8 fl (78.0-98.0); Mean Platelet Volume 8.7 fL (7.4-10.4); Platelet Count 190 10x3/uL (130-400); RBC Distribution Width 14.5 % (11.5-14.5); Red Blood Cell (RBC) Count 4.22 mill/uL (4.70-6.10); White Blood Cell (WBC) Count 5.1 10x3/uL (4.8-10.8)
[2022-02-19 06:10] LABS: Anion Gap 11 mmol/L (10-20); BUN (Urea Nitrogen) 19 mg/dL (8.4-25.7); Calc. Creatinine Clearance 97 mL/min (70-130); Calcium 8.3 mg/dL (7.8-10.44); Carbon Dioxide 21 mmol/L (23-31); Chloride 112 mmol/L (98-107); Estimated GFR 94; Glucose 273 mg/dL (80-115); Potassium 3.9 mmol/L (3.5-5.1); Sodium 140 mmol/L (136-145)
[2022-02-19] MEDS ORDERED: Morphine 4 MG/ML VIAL SLOW IVP PRN (06:30)
[2022-02-19] MEDS ORDERED: Senokot 8.6 MG TAB PO PRN (07:57)
[2022-02-19] MEDS ORDERED: HYDROcodone/Acetaminophen 7.5/325 mg Tablet PO SCH (08:00)
[2022-02-19] MEDS: Lisinopril 10 MG TAB PO SCH (09:26)
[2022-02-19] MEDS: Clopidogrel Bisulfate 75 MG TAB PO SCH (09:27)
[2022-02-19] MEDS: Naproxen 500 MG TAB PO SCH ×2 (09:27→22:48)
[2022-02-19] MEDS: Aspirin Chewable 81 MG TAB PO SCH (09:27)
[2022-02-19] MEDS: Gabapentin 300 MG CAP PO SCH ×3 (09:27→22:49)
[2022-02-19] MEDS: Cefepime 2 GM in Sodium Chloride 0.9% 100 ML IVPB SCH ×2 (09:28→22:49)
[2022-02-19] MEDS: Famotidine 20 MG TAB PO SCH ×2 (09:28→22:48)
[2022-02-19] MEDS: Polyethylene Glycol 3350 17 GM Packet PO SCH (09:28)
[2022-02-19] MEDS: Insulin NPH Human Isophane 100 UNIT/ML (10 ML VIAL) SC SCH ×2 (09:37→22:54)
[2022-02-19] MEDS ORDERED: HYDROcodone/Acetaminophen 7.5/325 mg Tablet PO PRN (12:00)
[2022-02-19] MEDS: HYDROcodone/Acetaminophen 5/325 mg Tablet PO PRN ×2 (15:18→22:47)
[2022-02-20] MEDS: Vancomycin 1 GM in Premix Bag 1 BAG IVPB SCH ×2 (00:39→12:48)
[2022-02-20 05:53] LABS: #Eosinphils 0.3 thou/uL (0.0-0.7); #Monocytes 0.5 thou/uL (0.11-0.59); #Neutrophils 2.5 thou/uL (1.40-6.50); %Basophils 0.1 % (0.0-1.0); %Eosinophils 4.8 % (0.0-10.0); %Lymphocytes 37.2 % (21.0-51.0); %Monocytes 10.1 % (0.0-10.0); %Neutrophils 47.9 % (42.0-75.0); Hemoglobin 12.2 g/dL (14.0-18.0); Mean Corpuscular HGB CONC 32.6 g/dL (32.0-36.0); Mean Corpuscular Volume 88.8 fl (78.0-98.0); Mean Platelet Volume 8.3 fL (7.4-10.4); Platelet Count 195 10x3/uL (130-400); RBC Distribution Width 14.5 % (11.5-14.5); White Blood Cell (WBC) Count 5.3 10x3/uL (4.8-10.8)
[2022-02-20 06:10] LABS: Anion Gap 10 mmol/L (10-20); BUN (Urea Nitrogen) 15 mg/dL (8.4-25.7); Calc. Creatinine Clearance 95 mL/min (70-130); Calcium 8.6 mg/dL (7.8-10.44); Carbon Dioxide 22 mmol/L (23-31); Chloride 110 mmol/L (98-107); Estimated GFR 93; Glucose 122 mg/dL (80-115); Potassium 3.6 mmol/L (3.5-5.1); Sodium 138 mmol/L (136-145)
[2022-02-20] MEDS: Clopidogrel Bisulfate 75 MG TAB PO SCH (08:20)
[2022-02-20] MEDS: Aspirin Chewable 81 MG TAB PO SCH (08:20)
[2022-02-20] MEDS: Cefepime 2 GM in Sodium Chloride 0.9% 100 ML IVPB SCH ×2 (08:20→21:04)
[2022-02-20] MEDS: Famotidine 20 MG TAB PO SCH ×2 (08:20→21:04)
[2022-02-20] MEDS: Naproxen 500 MG TAB PO SCH ×2 (08:20→21:01)
[2022-02-20] MEDS: Lisinopril 20 MG TAB PO SCH (08:20)
[2022-02-20] MEDS: Insulin NPH Human Isophane 100 UNIT/ML (10 ML VIAL) SC SCH ×2 (08:21→21:14)
[2022-02-20] MEDS: Polyethylene Glycol 3350 17 GM Packet PO SCH (08:22)
[2022-02-20] MEDS: Gabapentin 300 MG CAP PO SCH ×3 (08:22→21:04)
[2022-02-20] MEDS: hydrALAZINE 20 MG/ML VIAL SLOW IVP PRN ×2 (09:30→18:31)
[2022-02-20] MEDS: HumaLOG 300 UNITS/3 ML VIAL SC PRN (21:15)
[2022-02-21 00:13] LABS: Vancomycin, Trough 18.2 ug/mL
[2022-02-21] MEDS: Vancomycin 1 GM in Premix Bag 1 BAG IVPB SCH ×2 (01:01→12:11)
[2022-02-21] MEDS: hydrALAZINE 20 MG/ML VIAL SLOW IVP PRN (04:54)
[2022-02-21 06:55] LABS: #Eosinphils 0.2 thou/uL (0.0-0.7); #Lymphocytes 1.6 thou/uL (1.20-3.40); #Monocytes 0.5 thou/uL (0.11-0.59); #Neutrophils 4.2 thou/uL (1.40-6.50); %Basophils 0.4 % (0.0-1.0); %Eosinophils 3.3 % (0.0-10.0); %Monocytes 7.4 % (0.0-10.0); %Neutrophils 63.9 % (42.0-75.0); Hemoglobin 14.3 g/dL (14.0-18.0); Mean Corpuscular HGB CONC 33.3 g/dL (32.0-36.0); Mean Corpuscular Hemoglobin 29.6 pg (27.0-31.0); Mean Corpuscular Volume 88.8 fl (78.0-98.0); Mean Platelet Volume 8.4 fL (7.4-10.4); Platelet Count 220 10x3/uL (130-400); RBC Distribution Width 14.5 % (11.5-14.5); Red Blood Cell (RBC) Count 4.82 mill/uL (4.70-6.10); White Blood Cell (WBC) Count 6.5 10x3/uL (4.8-10.8)
[2022-02-21 07:08] LABS: Anion Gap 13 mmol/L (10-20); BUN (Urea Nitrogen) 13 mg/dL (8.4-25.7); Calc. Creatinine Clearance 110 mL/min (70-130); Calcium 9.4 mg/dL (7.8-10.44); Carbon Dioxide 22 mmol/L (23-31); Chloride 110 mmol/L (98-107); Estimated GFR 98; Glucose 71 mg/dL (80-115); Potassium 3.5 mmol/L (3.5-5.1); Sodium 141 mmol/L (136-145)
[2022-02-21] MEDS: Cefepime 2 GM in Sodium Chloride 0.9% 100 ML IVPB SCH (08:24)
[2022-02-21] MEDS: Aspirin Chewable 81 MG TAB PO SCH (08:25)
[2022-02-21] MEDS: Lisinopril 20 MG TAB PO SCH (08:25)
[2022-02-21] MEDS: Naproxen 500 MG TAB PO SCH (08:25)
[2022-02-21] MEDS: Famotidine 20 MG TAB PO SCH (08:25)
[2022-02-21] MEDS: Clopidogrel Bisulfate 75 MG TAB PO SCH (08:26)
[2022-02-21] MEDS: Insulin NPH Human Isophane 100 UNIT/ML (10 ML VIAL) SC SCH (08:26)
[2022-02-21] MEDS: Polyethylene Glycol 3350 17 GM Packet PO SCH (08:27)
[2022-02-21] MEDS: Gabapentin 300 MG CAP PO SCH ×2 (08:27→14:06)
[2022-02-21 16:45] VITALS: BP 167/92; TEMP 97.5
[2022-02-21] MEDS ORDERED: Insulin NPH Human Isophane 100 UNIT/ML (10 ML VIAL) SC SCH (21:00)
== END 2022-02-21 18:25 | disposition home or self-care (01) | DRG 550 ==
LOC: ERS 20:49 → ERHOLD 02-15 00:56 → SURG B 02-15 17:31 → OBSVTOIN 02-16 17:07
PROVIDERS: ADMIT Student in an Organized Health Care Education/Training Program; ATTEND Family Medicine
PROC: 0W993ZX Drainage of Right Pleural Cavity, Percutaneous Approach, Diagnostic (ICD-10-PCS; principal; 2022-02-14)
PROC: 0S9C4ZZ Drainage of Right Knee Joint, Percutaneous Endoscopic Approach (ICD-10-PCS; 2022-02-18)
DX: M00.061 Staphylococcal arthritis, right knee (principal); Z20.822 Contact with and (suspected) exposure to COVID-19; B95.7 Other staphylococcus as the cause of diseases classified elsewhere; M11.261 Other chondrocalcinosis, right knee; I25.10 Atherosclerotic heart disease of native coronary artery without angina pectoris; I10 Essential (primary) hypertension; F17.290 Nicotine dependence, other tobacco product, uncomplicated; E11.621 Type 2 diabetes mellitus with foot ulcer; L97.519 Non-pressure chronic ulcer of other part of right foot with unspecified severity; M25.461 Effusion, right knee; E78.00 Pure hypercholesterolemia, unspecified; Z95.1 Presence of aortocoronary bypass graft; I69.311 Memory deficit following cerebral infarction; I69.320 Aphasia following cerebral infarction; Z79.4 Long term (current) use of insulin; Z79.82 Long term (current) use of aspirin; Z79.02 Long term (current) use of antithrombotics/antiplatelets; Z95.5 Presence of coronary angioplasty implant and graft
CPT/HCPCS: 36415; 36416; 80048; 80053; 80202; 82550; 82945; 83036; 83605; 84157; 84550; 84560; 85025; 85060; 85652; 86140; 87040; 87070; 87076; 87077; 87149; 87186; 87205; 89051; 89060; 96372; 96374; 96375; 96376; 97139; G0378; J0360; J0692; J0696; J1650; J1815; J1885; J2270; J2405; J2704; J3010; J3370; J3370-JW; J3490; J7050; J7512; U0003; U0005

== ENCOUNTER 2022-03-20 12:03 | Emergency (ER) | payer MEDICARE, MEDICAID ==
[2022-03-20 13:21] LABS: #Eosinphils 0.3 thou/uL (0.0-0.7); #Monocytes 0.9 thou/uL (0.11-0.59); #Neutrophils 5.7 thou/uL (1.40-6.50); %Basophils 0.4 % (0.0-1.0); %Eosinophils 3.2 % (0.0-10.0); %Lymphocytes 30.3 % (21.0-51.0); %Monocytes 8.6 % (0.0-10.0); %Neutrophils 57.4 % (42.0-75.0); Hemoglobin 15.8 g/dL (14.0-18.0); Mean Corpuscular HGB CONC 33.5 g/dL (32.0-36.0); Mean Corpuscular Hemoglobin 29.6 pg (27.0-31.0); Mean Corpuscular Volume 88.3 fl (78.0-98.0); Mean Platelet Volume 8.2 fL (7.4-10.4); Platelet Count 201 10x3/uL (130-400); RBC Distribution Width 14.1 % (11.5-14.5); Red Blood Cell (RBC) Count 5.32 mill/uL (4.70-6.10); White Blood Cell (WBC) Count 9.9 10x3/uL (4.8-10.8)
[2022-03-20 13:43] LABS: ALT (SGPT) 12 U/L (8-55); AST (SGOT) 14 U/L (5-34); Albumin 3.8 g/dL (3.4-4.8); Alkaline Phosphatase 104 U/L (40-110); Anion Gap 12 mmol/L (10-20); BUN (Urea Nitrogen) 7 mg/dL (8.4-25.7); Bilirubin, Total 0.8 mg/dL (0.2-1.2); Calc. Creatinine Clearance 0 mL/min (70-130); Calcium 9.5 mg/dL (7.8-10.44); Carbon Dioxide 26 mmol/L (23-31); Chloride 108 mmol/L (98-107); Estimated GFR 93; Globulin 3.7 g/dL (2.4-3.5); Glucose 74 mg/dL (80-115); Potassium 3.6 mmol/L (3.5-5.1); Protein, Total 7.5 g/dL (5.8-8.1); Sodium 142 mmol/L (136-145)
== END 2022-03-20 14:05 | disposition home or self-care (01) ==
LOC: ERS 12:03
DX: M17.11 Unilateral primary osteoarthritis, right knee (principal); E11.9 Type 2 diabetes mellitus without complications; I10 Essential (primary) hypertension; E78.00 Pure hypercholesterolemia, unspecified; F17.220 Nicotine dependence, chewing tobacco, uncomplicated; Z79.82 Long term (current) use of aspirin; Z79.899 Other long term (current) drug therapy; Z79.4 Long term (current) use of insulin
CPT/HCPCS: 36415; 80053; 85025; 85652; 86140

== ENCOUNTER 2022-03-21 22:22 | Inpatient (IN) | payer MEDICARE, MEDICAID ==
[2022-03-21] MEDS ORDERED: Fentanyl 100 MCG/2 ML VIAL ONE ×2 (23:04→23:50)
[2022-03-21 23:32] LABS: #Eosinphils 0.2 thou/uL (0.0-0.7); #Lymphocytes 2.1 thou/uL (1.20-3.40); #Monocytes 0.9 thou/uL (0.11-0.59); #Neutrophils 6.1 thou/uL (1.40-6.50); %Basophils 0.4 % (0.0-1.0); %Eosinophils 1.7 % (0.0-10.0); %Lymphocytes 22.1 % (21.0-51.0); %Monocytes 9.8 % (0.0-10.0); %Neutrophils 65.9 % (42.0-75.0); Hemoglobin 15.3 g/dL (14.0-18.0); Mean Corpuscular HGB CONC 33.9 g/dL (32.0-36.0); Mean Corpuscular Hemoglobin 29.4 pg (27.0-31.0); Mean Corpuscular Volume 86.9 fl (78.0-98.0); Mean Platelet Volume 8.8 fL (7.4-10.4); Platelet Count 176 10x3/uL (130-400); Red Blood Cell (RBC) Count 5.19 mill/uL (4.70-6.10); White Blood Cell (WBC) Count 9.2 10x3/uL (4.8-10.8)
[2022-03-21] MEDS ORDERED: cefTRIAXone\\ROCEPHIN 1 GM VIAL ONE (23:48)
[2022-03-21] MEDS ORDERED: Sodium Chloride 0.9% 100 ML ONE (23:48)
[2022-03-21] MEDS ORDERED: Vancomycin 1 GM/200 ML (FROZEN) BAG ONE (23:48)
[2022-03-21 23:54] LABS: ALT (SGPT) 10 U/L (8-55); AST (SGOT) 13 U/L (5-34); Albumin 3.9 g/dL (3.4-4.8); Alkaline Phosphatase 125 U/L (40-110); Anion Gap 14 mmol/L (10-20); BUN (Urea Nitrogen) 17 mg/dL (8.4-25.7); Bilirubin, Total 0.7 mg/dL (0.2-1.2); Calc. Creatinine Clearance 0 mL/min (70-130); Calcium 9.4 mg/dL (7.8-10.44); Carbon Dioxide 24 mmol/L (23-31); Chloride 104 mmol/L (98-107); Estimated GFR 66; Globulin 3.7 g/dL (2.4-3.5); Glucose 206 mg/dL (80-115); Potassium 3.6 mmol/L (3.5-5.1); Protein, Total 7.6 g/dL (5.8-8.1); Sodium 138 mmol/L (136-145)
[2022-03-22] MEDS ORDERED: Morphine 4 MG/ML VIAL ONE ×2 (00:56→02:05)
[2022-03-22] MEDS ORDERED: Ketorolac Tromethamine 30 MG/ML VIAL ONE ×2 (00:56→06:12)
[2022-03-22 01:40] LABS: BF Color Red; Body Fluid Source Synovial Fluid; Clarity Clear (Clear); Tube # 1
[2022-03-22 02:11] LABS: Lactic Acid 0.9 mmol/L (0.5-2.2)
[2022-03-22] MEDS ORDERED: Dextrose 50% Abboject 50 ML SYRINGE SLOW IVP PRN (02:32)
[2022-03-22] MEDS ORDERED: Dextrose 5% in Water 1,000 ML IV PRN (02:32)
[2022-03-22] MEDS ORDERED: HumaLOG 300 UNITS/3 ML VIAL SC PRN ×2 (02:38)
[2022-03-22] MEDS ORDERED: Morphine 2 MG/ML VIAL SLOW IVP PRN (02:53)
[2022-03-22] MEDS ORDERED: Lactated Ringer's 1,000 ML IV SCH (03:00)
[2022-03-22] MEDS ORDERED: Cefepime 2 GM VIAL ONE (04:25)
[2022-03-22 04:29] VITALS: BMI 27.6
[2022-03-22 05:09] LABS: SARS-CoV-2 NAA Rapid Test Not Detected (NotDetected)
[2022-03-22] MEDS: Cefepime 2 GM in Sodium Chloride 0.9% 100 ML IVPB SCH ×2 (06:11→19:59)
[2022-03-22] MEDS ORDERED: Acetaminophen 500 MG TAB ONE (06:12)
[2022-03-22] MEDS: Ketorolac Tromethamine 30 MG/ML VIAL IVP SCH ×4 (06:15→23:26)
[2022-03-22] MEDS: Acetaminophen 500 MG TAB PO SCH ×5 (06:16→23:29)
[2022-03-22 06:53] LABS: #Eosinphils 0.3 thou/uL (0.0-0.7); #Lymphocytes 2.7 thou/uL (1.20-3.40); #Monocytes 0.9 thou/uL (0.11-0.59); %Basophils 0.6 % (0.0-1.0); %Eosinophils 3.3 % (0.0-10.0); %Lymphocytes 33.9 % (21.0-51.0); %Monocytes 11.4 % (0.0-10.0); %Neutrophils 50.8 % (42.0-75.0); Hemoglobin 14.6 g/dL (14.0-18.0); Mean Corpuscular HGB CONC 33.7 g/dL (32.0-36.0); Mean Corpuscular Hemoglobin 29.7 pg (27.0-31.0); Mean Corpuscular Volume 88.2 fl (78.0-98.0); Mean Platelet Volume 8.5 fL (7.4-10.4); Platelet Count 159 10x3/uL (130-400); RBC Distribution Width 13.9 % (11.5-14.5); Red Blood Cell (RBC) Count 4.91 mill/uL (4.70-6.10); White Blood Cell (WBC) Count 7.9 10x3/uL (4.8-10.8)
[2022-03-22 07:20] LABS: Anion Gap 11 mmol/L (10-20); BUN (Urea Nitrogen) 15 mg/dL (8.4-25.7); Calc. Creatinine Clearance 87 mL/min (70-130); Calcium 8.4 mg/dL (7.8-10.44); Carbon Dioxide 23 mmol/L (23-31); Chloride 108 mmol/L (98-107); Estimated GFR 85; Glucose 77 mg/dL (80-115); Potassium 3.6 mmol/L (3.5-5.1); Sodium 138 mmol/L (136-145)
[2022-03-22] MEDS: Aspirin Chewable 81 MG TAB PO SCH (08:18)
[2022-03-22] MEDS: Lisinopril 20 MG TAB PO SCH (08:19)
[2022-03-22] MEDS: Atorvastatin Calcium 20 MG TAB PO SCH (08:19)
[2022-03-22] MEDS ORDERED: Famotidine 20 MG TAB ONE (08:22)
[2022-03-22] MEDS ORDERED: Clopidogrel Bisulfate 75 MG TAB ONE (08:22)
[2022-03-22] MEDS: Clopidogrel Bisulfate 75 MG TAB PO SCH (08:25)
[2022-03-22] MEDS: Famotidine 20 MG TAB PO SCH ×2 (08:25→20:00)
[2022-03-22] MEDS ORDERED: Morphine 2 MG/ML VIAL ONE (08:28)
[2022-03-22] MEDS: Pregabalin 25 MG CAP PO SCH (08:59)
[2022-03-22] MEDS ORDERED: NPH, Human Insulin Isophane 300 UNIT/3 ML VIAL SC SCH (09:00)
[2022-03-22] MEDS: Vancomycin 1 GM in Premix Bag 1 BAG IVPB SCH (12:34)
[2022-03-22] MEDS: Insulin NPH Human Isophane 100 UNIT/ML (10 ML VIAL) SC SCH (20:03)
[2022-03-23] MEDS: Vancomycin 1 GM in Premix Bag 1 BAG IVPB SCH ×2 (00:48→12:45)
[2022-03-23] MEDS: Ketorolac Tromethamine 30 MG/ML VIAL IVP SCH ×2 (05:01→11:18)
[2022-03-23] MEDS: Acetaminophen 500 MG TAB PO SCH ×3 (05:57→15:47)
[2022-03-23 07:32] LABS: #Eosinphils 0.2 thou/uL (0.0-0.7); #Lymphocytes 1.9 thou/uL (1.20-3.40); #Monocytes 0.7 thou/uL (0.11-0.59); #Neutrophils 4.7 thou/uL (1.40-6.50); %Basophils 0.3 % (0.0-1.0); %Eosinophils 2.1 % (0.0-10.0); %Monocytes 9.6 % (0.0-10.0); %Neutrophils 62.9 % (42.0-75.0); Hemoglobin 13.3 g/dL (14.0-18.0); Mean Corpuscular HGB CONC 34.1 g/dL (32.0-36.0); Mean Corpuscular Hemoglobin 29.9 pg (27.0-31.0); Mean Corpuscular Volume 87.8 fl (78.0-98.0); Mean Platelet Volume 9.1 fL (7.4-10.4); Platelet Count 148 10x3/uL (130-400); RBC Distribution Width 13.7 % (11.5-14.5); Red Blood Cell (RBC) Count 4.46 mill/uL (4.70-6.10); White Blood Cell (WBC) Count 7.5 10x3/uL (4.8-10.8)
[2022-03-23 07:45] LABS: Anion Gap 9 mmol/L (10-20); BUN (Urea Nitrogen) 17 mg/dL (8.4-25.7); Calc. Creatinine Clearance 72 mL/min (70-130); Calcium 8.4 mg/dL (7.8-10.44); Carbon Dioxide 24 mmol/L (23-31); Chloride 107 mmol/L (98-107); Estimated GFR 68; Glucose 126 mg/dL (80-115); Potassium 4.1 mmol/L (3.5-5.1); Sodium 136 mmol/L (136-145)
[2022-03-23] MEDS: Cefepime 2 GM in Sodium Chloride 0.9% 100 ML IVPB SCH (07:57)
[2022-03-23] MEDS: Aspirin Chewable 81 MG TAB PO SCH (07:57)
[2022-03-23] MEDS: Lisinopril 20 MG TAB PO SCH (07:58)
[2022-03-23] MEDS: Pregabalin 25 MG CAP PO SCH (07:58)
[2022-03-23] MEDS: Clopidogrel Bisulfate 75 MG TAB PO SCH (07:58)
[2022-03-23] MEDS: Famotidine 20 MG TAB PO SCH (07:58)
[2022-03-23] MEDS: Atorvastatin Calcium 20 MG TAB PO SCH (07:58)
[2022-03-23] MEDS: Insulin NPH Human Isophane 100 UNIT/ML (10 ML VIAL) SC SCH (07:59)
[2022-03-23] MEDS ORDERED: traMADol HCl 50 MG TAB PO PRN (10:38)
[2022-03-23] MEDS: HYDROcodone/Acetaminophen 5/325 mg Tablet PO PRN ×2 (11:18→15:13)
[2022-03-23 12:19] LABS: Vancomycin, Trough 15.3 ug/mL
[2022-03-23 12:24] VITALS: BP 181/85; TEMP 98.8
== END 2022-03-23 17:04 | disposition home or self-care (01) | DRG 549 ==
LOC: ERS 22:22 → ERHOLD 03-22 02:06 → T4-A 03-22 11:01 → OBSVTOIN 03-22 14:29
PROVIDERS: ADMIT Student in an Organized Health Care Education/Training Program; ATTEND Internal Medicine
DX: M00.9 Pyogenic arthritis, unspecified (principal); I25.810 Atherosclerosis of coronary artery bypass graft(s) without angina pectoris; Z66 Do not resuscitate; M25.461 Effusion, right knee; E11.9 Type 2 diabetes mellitus without complications; I10 Essential (primary) hypertension; F17.210 Nicotine dependence, cigarettes, uncomplicated; Z95.1 Presence of aortocoronary bypass graft; Z79.82 Long term (current) use of aspirin; Z79.899 Other long term (current) drug therapy; I25.2 Old myocardial infarction; Z79.4 Long term (current) use of insulin
CPT/HCPCS: 20610; 36415; 36416; 72170; 80048; 80053; 80202; 82945; 83605; 84145; 85025; 85652; 86140; 87040; 87070; 87205; 89051; 89060; 96365; 96375; 96376; 97139; G0378; J0692; J0696; J1650; J1815; J1885; J2270; J2272; J3010; J3370-JW; J3490; J7120; J7999; U0002

== ENCOUNTER 2022-06-08 10:48 | Inpatient (IN) | payer MEDICARE, MEDICAID ==
[2022-06-08 11:58] LABS: #Eosinphils 0.1 thou/uL (0.0-0.7); #Lymphocytes 2.6 thou/uL (1.20-3.40); #Monocytes 1.1 thou/uL (0.11-0.59); #Neutrophils 5.3 thou/uL (1.40-6.50); %Basophils 0.3 % (0.0-1.0); %Eosinophils 1.3 % (0.0-10.0); %Lymphocytes 28.5 % (21.0-51.0); %Monocytes 11.5 % (0.0-10.0); %Neutrophils 58.4 % (42.0-75.0); Hemoglobin 17.5 g/dL (14.0-18.0); Mean Corpuscular HGB CONC 33.8 g/dL (32.0-36.0); Mean Corpuscular Hemoglobin 29.3 pg (27.0-31.0); Mean Corpuscular Volume 86.8 fl (78.0-98.0); Mean Platelet Volume 8.9 fL (7.4-10.4); Platelet Count 148 10x3/uL (130-400); RBC Distribution Width 13.7 % (11.5-14.5); Red Blood Cell (RBC) Count 5.98 mill/uL (4.70-6.10); White Blood Cell (WBC) Count 9.1 10x3/uL (4.8-10.8)
[2022-06-08 12:24] LABS: ALT (SGPT) 12 U/L (8-55); AST (SGOT) 16 U/L (5-34); Albumin 3.8 g/dL (3.4-4.8); Alkaline Phosphatase 106 U/L (40-110); Anion Gap 14 mmol/L (10-20); BUN (Urea Nitrogen) 23 mg/dL (8.4-25.7); Bilirubin, Total 1.5 mg/dL (0.2-1.2); Calc. Creatinine Clearance 0 mL/min (70-130); Calcium 9.2 mg/dL (7.8-10.44); Carbon Dioxide 22 mmol/L (23-31); Chloride 102 mmol/L (98-107); Estimated GFR 54; Globulin 3.2 g/dL (2.4-3.5); Glucose 302 mg/dL (80-115); Potassium 4.5 mmol/L (3.5-5.1); Sodium 133 mmol/L (136-145)
[2022-06-08 12:46] LABS: Bacteria/HPF None Seen HPF (None Seen); Bilirubin Negative (Negative); Blood, Urine 1+ (Negative); Clarity Clear (Clear); Glucose, Urine (Dipstick) Greater than 1000 mg/dL (Negative); Ketone, Urine Negative (Negative); Leukocyte Negative Leu/uL (Negative); Nitrite Negative (Negative); Protein, Urine (Dipstick) 100 mg/dL (Neg-Trace); RBC/HPF 0-3 HPF (0-3); Specific Gravity, Urine 1.019 (1.002-1.036); Squamous Epithelial 0-3 HPF (0-3); Urobilinogen Normal mg/dL (Less than 2); WBC/HPF 0-3 HPF (0-3); pH, Urine 5.5 (5.0-9.0)
[2022-06-08] MEDS ORDERED: Ketorolac Tromethamine 30 MG/ML VIAL ONE (15:09)
[2022-06-08 15:43] LABS: Troponin I 0.015 ng/mL (< 0.028)
[2022-06-08 15:59] LABS: CK (CPK) 141 U/L (30-200)
[2022-06-08] MEDS ORDERED: Dextrose 5% in Water 1,000 ML IV PRN (16:22)
[2022-06-08] MEDS ORDERED: Dextrose 50% Abboject 50 ML SYRINGE SLOW IVP PRN (16:22)
[2022-06-08] MEDS ORDERED: Sodium Chloride 0.9% 1,000 ML IV SCH (16:30)
[2022-06-08 17:44] VITALS: BMI 29.8
[2022-06-08] MEDS: HYDROcodone/Acetaminophen 5/325 mg Tablet PO PRN (19:41)
[2022-06-08] MEDS ORDERED: NPH, Human Insulin Isophane 300 UNIT/3 ML VIAL SC SCH (21:00)
[2022-06-08] MEDS: Heparin 5,000 UNITS/ML VIAL SC SCH (21:05)
[2022-06-08] MEDS: Famotidine 20 MG TAB PO SCH (21:06)
[2022-06-08] MEDS: Insulin NPH Human Isophane 100 UNIT/ML (10 ML VIAL) SC SCH (21:45)
[2022-06-08 21:58] LABS: Troponin I 0.015 ng/mL (< 0.028)
[2022-06-08] MEDS ORDERED: Morphine 2 MG/ML VIAL SLOW IVP PRN (22:03)
[2022-06-08] MEDS ORDERED: Lidocaine 4% Patch TD SCH (22:15)
[2022-06-09] MEDS: HYDROcodone/Acetaminophen 5/325 mg Tablet PO PRN ×4 (00:18→21:36)
[2022-06-09 05:54] LABS: #Basophils 0.1 thou/uL (0.0-0.2); #Eosinphils 0.2 thou/uL (0.0-0.7); #Lymphocytes 2.4 thou/uL (1.20-3.40); #Monocytes 0.9 thou/uL (0.11-0.59); #Neutrophils 3.8 thou/uL (1.40-6.50); %Basophils 0.9 % (0.0-1.0); %Eosinophils 2.9 % (0.0-10.0); %Lymphocytes 32.3 % (21.0-51.0); %Neutrophils 51.9 % (42.0-75.0); Hemoglobin 15.8 g/dL (14.0-18.0); Mean Corpuscular HGB CONC 34.5 g/dL (32.0-36.0); Mean Corpuscular Hemoglobin 29.7 pg (27.0-31.0); Mean Platelet Volume 9.1 fL (7.4-10.4); Platelet Count 128 10x3/uL (130-400); RBC Distribution Width 13.5 % (11.5-14.5); Red Blood Cell (RBC) Count 5.34 mill/uL (4.70-6.10); White Blood Cell (WBC) Count 7.3 10x3/uL (4.8-10.8)
[2022-06-09 06:17] LABS: ALT (SGPT) 9 U/L (8-55); AST (SGOT) 8 U/L (5-34); Albumin 3.2 g/dL (3.4-4.8); Alkaline Phosphatase 76 U/L (40-110); Anion Gap 11 mmol/L (10-20); BUN (Urea Nitrogen) 17 mg/dL (8.4-25.7); Bilirubin, Total 1.2 mg/dL (0.2-1.2); Calc. Creatinine Clearance 81 mL/min (70-130); Calcium 8.9 mg/dL (7.8-10.44); Carbon Dioxide 22 mmol/L (23-31); Chloride 104 mmol/L (98-107); Estimated GFR 71; Glucose 212 mg/dL (80-115); Potassium 4.2 mmol/L (3.5-5.1); Protein, Total 6.2 g/dL (5.8-8.1); Sodium 133 mmol/L (136-145)
[2022-06-09] MEDS: Insulin NPH Human Isophane 100 UNIT/ML (10 ML VIAL) SC SCH ×2 (08:53→20:33)
[2022-06-09] MEDS: Heparin 5,000 UNITS/ML VIAL SC SCH ×3 (08:53→20:36)
[2022-06-09] MEDS: Lisinopril 20 MG TAB PO SCH (08:54)
[2022-06-09] MEDS: Famotidine 20 MG TAB PO SCH ×2 (08:56→20:33)
[2022-06-09] MEDS: Aspirin Chewable 81 MG TAB PO SCH (08:56)
[2022-06-09] MEDS ORDERED: Acetaminophen 325 MG TAB PO PRN (09:15)
[2022-06-09] MEDS ORDERED: Ketorolac Tromethamine 30 MG/ML VIAL IVP PRN (09:18)
[2022-06-09] MEDS ORDERED: Transdermal Patch Removal TOP SCH (10:00)
[2022-06-09] MEDS ORDERED: Ondansetron PF 4 MG/2 ML Vial IVP PRN (10:14)
[2022-06-09] MEDS ORDERED: Ondansetron ODT 4 MG TAB PO PRN (10:22)
[2022-06-09] MEDS: HumaLOG 300 UNITS/3 ML VIAL SC PRN ×2 (11:01→17:52)
[2022-06-10] MEDS: HYDROcodone/Acetaminophen 5/325 mg Tablet PO PRN ×3 (01:31→18:07)
[2022-06-10] MEDS: Famotidine 20 MG TAB PO SCH ×2 (09:05→21:01)
[2022-06-10] MEDS: Lisinopril 20 MG TAB PO SCH (09:05)
[2022-06-10] MEDS: Aspirin Chewable 81 MG TAB PO SCH (09:05)
[2022-06-10] MEDS: Insulin NPH Human Isophane 100 UNIT/ML (10 ML VIAL) SC SCH ×2 (09:06→21:01)
[2022-06-10] MEDS: Heparin 5,000 UNITS/ML VIAL SC SCH ×3 (12:52→21:02)
[2022-06-10] MEDS ORDERED: Triple Antibiotic Oint 1 GM Packet TOP PRN (13:45)
[2022-06-10] MEDS: HumaLOG 300 UNITS/3 ML VIAL SC PRN ×2 (13:46→18:06)
[2022-06-11] MEDS: HumaLOG 300 UNITS/3 ML VIAL SC PRN ×2 (06:28→17:17)
[2022-06-11] MEDS: HYDROcodone/Acetaminophen 5/325 mg Tablet PO PRN ×3 (06:29→20:18)
[2022-06-11] MEDS: Insulin NPH Human Isophane 100 UNIT/ML (10 ML VIAL) SC SCH ×2 (09:46→20:18)
[2022-06-11] MEDS: Heparin 5,000 UNITS/ML VIAL SC SCH ×3 (09:46→20:22)
[2022-06-11] MEDS: Famotidine 20 MG TAB PO SCH ×2 (09:47→20:17)
[2022-06-11] MEDS: Lisinopril 20 MG TAB PO SCH (09:47)
[2022-06-11] MEDS: Aspirin Chewable 81 MG TAB PO SCH (09:47)
[2022-06-11] MEDS ORDERED: FLU VACC QS2022-23(65YR UP)/PF 240 MCG/0.7 ML SYRINGE IM ONE (18:15)
[2022-06-12] MEDS: HYDROcodone/Acetaminophen 5/325 mg Tablet PO PRN ×3 (03:26→21:28)
[2022-06-12] MEDS: HumaLOG 300 UNITS/3 ML VIAL SC PRN ×4 (05:45→21:28)
[2022-06-12 08:42] LABS: Anion Gap 11 mmol/L (10-20); BUN (Urea Nitrogen) 19 mg/dL (8.4-25.7); Calc. Creatinine Clearance 77 mL/min (70-130); Calcium 9.3 mg/dL (7.8-10.44); Carbon Dioxide 21 mmol/L (23-31); Chloride 106 mmol/L (98-107); Estimated GFR 67; Glucose 170 mg/dL (80-115); Potassium 4.1 mmol/L (3.5-5.1); Sodium 134 mmol/L (136-145)
[2022-06-12] MEDS: Lisinopril 20 MG TAB PO SCH (10:39)
[2022-06-12] MEDS: Insulin NPH Human Isophane 100 UNIT/ML (10 ML VIAL) SC SCH ×2 (10:39→21:28)
[2022-06-12] MEDS: Aspirin Chewable 81 MG TAB PO SCH (10:39)
[2022-06-12] MEDS: Famotidine 20 MG TAB PO SCH ×2 (10:39→21:27)
[2022-06-12] MEDS: Heparin 5,000 UNITS/ML VIAL SC SCH ×3 (10:39→21:28)
[2022-06-12 21:11] LABS: #Eosinphils 0.2 thou/uL (0.0-0.7); #Lymphocytes 2.3 thou/uL (1.20-3.40); #Monocytes 0.8 thou/uL (0.11-0.59); #Neutrophils 3.6 thou/uL (1.40-6.50); %Basophils 0.4 % (0.0-1.0); %Eosinophils 3.4 % (0.0-10.0); %Monocytes 11.3 % (0.0-10.0); Hemoglobin 16.1 g/dL (14.0-18.0); Mean Corpuscular HGB CONC 34.6 g/dL (32.0-36.0); Mean Corpuscular Hemoglobin 29.8 pg (27.0-31.0); Mean Corpuscular Volume 86.1 fl (78.0-98.0); Mean Platelet Volume 8.9 fL (7.4-10.4); Platelet Count 169 10x3/uL (130-400); RBC Distribution Width 13.2 % (11.5-14.5); White Blood Cell (WBC) Count 6.9 10x3/uL (4.8-10.8)
[2022-06-13] MEDS: HYDROcodone/Acetaminophen 5/325 mg Tablet PO PRN ×3 (06:10→21:51)
[2022-06-13] MEDS: Insulin NPH Human Isophane 100 UNIT/ML (10 ML VIAL) SC SCH ×2 (10:17→21:48)
[2022-06-13] MEDS: Aspirin Chewable 81 MG TAB PO SCH (10:17)
[2022-06-13] MEDS: Famotidine 20 MG TAB PO SCH ×2 (10:17→21:50)
[2022-06-13] MEDS: Lisinopril 20 MG TAB PO SCH (10:17)
[2022-06-13] MEDS: Heparin 5,000 UNITS/ML VIAL SC SCH ×3 (10:23→21:50)
[2022-06-13] MEDS: HumaLOG 300 UNITS/3 ML VIAL SC PRN ×3 (13:25→21:47)
[2022-06-14] MEDS: HYDROcodone/Acetaminophen 5/325 mg Tablet PO PRN ×4 (03:15→21:00)
[2022-06-14] MEDS ORDERED: Lidocaine 1% (PF) 30 ML VIAL ONE (07:43)
[2022-06-14] MEDS: Aspirin Chewable 81 MG TAB PO SCH (09:02)
[2022-06-14] MEDS: Insulin NPH Human Isophane 100 UNIT/ML (10 ML VIAL) SC SCH ×2 (09:02→20:30)
[2022-06-14] MEDS: Famotidine 20 MG TAB PO SCH ×2 (09:02→20:29)
[2022-06-14] MEDS: Heparin 5,000 UNITS/ML VIAL SC SCH ×3 (09:08→20:29)
[2022-06-14] MEDS: Lisinopril 20 MG TAB PO SCH (10:06)
[2022-06-14] MEDS: HumaLOG 300 UNITS/3 ML VIAL SC PRN ×3 (12:20→20:30)
[2022-06-15 05:34] LABS: #Basophils 0.1 thou/uL (0.0-0.2); #Eosinphils 0.3 thou/uL (0.0-0.7); #Lymphocytes 2.5 thou/uL (1.20-3.40); #Monocytes 0.6 thou/uL (0.11-0.59); #Neutrophils 3.1 thou/uL (1.40-6.50); %Lymphocytes 37.9 % (21.0-51.0); %Monocytes 9.7 % (0.0-10.0); %Neutrophils 47.4 % (42.0-75.0); Hemoglobin 16.1 g/dL (14.0-18.0); Mean Corpuscular HGB CONC 32.4 g/dL (32.0-36.0); Mean Corpuscular Volume 86.2 fl (78.0-98.0); Mean Platelet Volume 8.3 fL (7.4-10.4); Platelet Count 208 10x3/uL (130-400); RBC Distribution Width 13.2 % (11.5-14.5); Red Blood Cell (RBC) Count 5.75 mill/uL (4.70-6.10); White Blood Cell (WBC) Count 6.6 10x3/uL (4.8-10.8)
[2022-06-15 05:47] LABS: Anion Gap 13 mmol/L (10-20); BUN (Urea Nitrogen) 30 mg/dL (8.4-25.7); Calc. Creatinine Clearance 69 mL/min (70-130); Calcium 9.2 mg/dL (7.8-10.44); Carbon Dioxide 20 mmol/L (23-31); Chloride 106 mmol/L (98-107); Estimated GFR 59; Glucose 158 mg/dL (80-115); Potassium 4.4 mmol/L (3.5-5.1); Sodium 135 mmol/L (136-145)
[2022-06-15] MEDS: HumaLOG 300 UNITS/3 ML VIAL SC PRN ×3 (05:58→18:17)
[2022-06-15] MEDS: HYDROcodone/Acetaminophen 5/325 mg Tablet PO PRN ×3 (06:01→20:09)
[2022-06-15] MEDS: Aspirin Chewable 81 MG TAB PO SCH (09:12)
[2022-06-15] MEDS: Famotidine 20 MG TAB PO SCH ×2 (09:12→20:11)
[2022-06-15] MEDS: Lisinopril 20 MG TAB PO SCH (09:12)
[2022-06-15] MEDS: Insulin NPH Human Isophane 100 UNIT/ML (10 ML VIAL) SC SCH ×2 (09:15→21:50)
[2022-06-15] MEDS: Heparin 5,000 UNITS/ML VIAL SC SCH ×3 (09:17→20:11)
[2022-06-15] MEDS: Sodium Chloride 0.9% 1,000 ML IV SCH (16:13)
[2022-06-15] MEDS: Senokot S 8.6-50 MG TAB PO SCH (20:11)
[2022-06-16] MEDS: Sodium Chloride 0.9% 1,000 ML IV SCH ×2 (02:32→16:48)
[2022-06-16] MEDS: HumaLOG 300 UNITS/3 ML VIAL SC PRN (05:51)
[2022-06-16] MEDS: Lisinopril 20 MG TAB PO SCH (09:17)
[2022-06-16] MEDS: Aspirin Chewable 81 MG TAB PO SCH (09:18)
[2022-06-16] MEDS: Senokot S 8.6-50 MG TAB PO SCH (09:18)
[2022-06-16] MEDS: Heparin 5,000 UNITS/ML VIAL SC SCH ×2 (09:18→17:32)
[2022-06-16] MEDS: Insulin NPH Human Isophane 100 UNIT/ML (10 ML VIAL) SC SCH (09:18)
[2022-06-16] MEDS: Famotidine 20 MG TAB PO SCH (09:18)
[2022-06-16 11:25] VITALS: TEMP 97.4
[2022-06-16] MEDS: HYDROcodone/Acetaminophen 5/325 mg Tablet PO PRN (12:12)
[2022-06-16] MEDS ORDERED: Iopamidol-370 76% 500 ML MDV (1 ML CHARGE) ONE (12:49)
[2022-06-16 15:51] VITALS: BP 148/83
== END 2022-06-16 17:38 | disposition home health service (06) | DRG 261 ==
LOC: ERS 10:48 → NEURO 17:35 → OBSVTOIN 06-09 16:08
PROVIDERS: ADMIT Internal Medicine Nephrology; ATTEND Emergency Medicine
PROC: 0JH602Z Insertion of Monitoring Device into Chest Subcutaneous Tissue and Fascia, Open Approach (ICD-10-PCS; principal; 2022-06-14)
DX: I44.1 Atrioventricular block, second degree (principal); N17.9 Acute kidney failure, unspecified; R55 Syncope and collapse; R00.1 Bradycardia, unspecified; E11.40 Type 2 diabetes mellitus with diabetic neuropathy, unspecified; I10 Essential (primary) hypertension; I25.10 Atherosclerotic heart disease of native coronary artery without angina pectoris; R53.81 Other malaise; E11.621 Type 2 diabetes mellitus with foot ulcer; E78.00 Pure hypercholesterolemia, unspecified; E11.51 Type 2 diabetes mellitus with diabetic peripheral angiopathy without gangrene; L97.519 Non-pressure chronic ulcer of other part of right foot with unspecified severity; Z95.1 Presence of aortocoronary bypass graft; Z95.5 Presence of coronary angioplasty implant and graft; Z79.02 Long term (current) use of antithrombotics/antiplatelets; Z79.899 Other long term (current) drug therapy; Z79.4 Long term (current) use of insulin; I25.2 Old myocardial infarction; Z98.890 Other specified postprocedural states
CPT/HCPCS: 33285; 36415; 36416; 70450; 71045; 72125; 75635; 80048; 80053; 81003; 81015; 84484; 85025; 93005; 93306; 93880; 93922; 93923; 96372; 97139; G0378; J1644; J1815; J1885; J2001; J7050; Q9967

== ENCOUNTER 2023-02-25 23:56 | Emergency (ER) | payer MEDICARE, MEDICAID ==
[2023-02-26 01:10] LABS: #Basophils 0.1 thou/uL (0.0-0.2); #Eosinphils 0.2 thou/uL (0.0-0.7); #Monocytes 0.7 thou/uL (0.11-0.59); #Neutrophils 4.8 thou/uL (1.40-6.50); %Basophils 0.8 % (0.0-1.0); %Eosinophils 2.3 % (0.0-10.0); %Lymphocytes 26.8 % (21.0-51.0); %Monocytes 8.8 % (0.0-10.0); %Neutrophils 60.4 % (42.0-75.0); Hemoglobin 18.1 g/dL (14.0-18.0); Mean Corpuscular HGB CONC 35.5 g/dL (32.0-36.0); Mean Corpuscular Hemoglobin 29.4 pg (27.0-31.0); Mean Corpuscular Volume 82.8 fl (78.0-98.0); Mean Platelet Volume 10.6 fL (7.4-10.4); Platelet Count 145 10x3/uL (130-400); RBC Distribution Width 13.3 % (11.5-14.5); Red Blood Cell (RBC) Count 6.16 mill/uL (4.70-6.10); White Blood Cell (WBC) Count 7.9 10x3/uL (4.8-10.8)
[2023-02-26 01:33] LABS: ALT (SGPT) 11 U/L (8-55); AST (SGOT) 12 U/L (5-34); Albumin 3.7 g/dL (3.4-4.8); Alkaline Phosphatase 124 U/L (40-110); Anion Gap 15 mmol/L (10-20); BUN (Urea Nitrogen) 16 mg/dL (8.4-25.7); Bilirubin, Total 0.9 mg/dL (0.2-1.2); CK (CPK) 46 U/L (30-200); Calc. Creatinine Clearance 0 mL/min (70-130); Calcium 9.2 mg/dL (7.8-10.44); Carbon Dioxide 23 mmol/L (23-31); Chloride 104 mmol/L (98-107); Estimated GFR 56; Globulin 3.1 g/dL (2.4-3.5); Glucose 270 mg/dL (80-115); Protein, Total 6.8 g/dL (5.8-8.1); Sodium 138 mmol/L (136-145)
[2023-02-26 01:36] LABS: Troponin I Less than 0.010 ng/mL (< 0.028)
== END 2023-02-26 02:49 | disposition home or self-care (01) ==
LOC: ERS 23:56
DX: M79.632 Pain in left forearm (principal); E11.9 Type 2 diabetes mellitus without complications; I10 Essential (primary) hypertension; I25.10 Atherosclerotic heart disease of native coronary artery without angina pectoris; I25.2 Old myocardial infarction; F17.220 Nicotine dependence, chewing tobacco, uncomplicated
CPT/HCPCS: 36415; 71045; 80053; 82550; 84484; 85025; 93005

== ENCOUNTER 2023-12-13 20:08 | Emergency (ER) | payer MEDICAID, MEDICARE ==
[2023-12-13 20:52] LABS: #Basophils 0.06 10x3/uL (0.0-0.2); %Basophils 0.7 % (0.0-1.0); %Eosinophils 1.8 % (0.0-10.0); %Lymphocytes 28.4 % (21.0-51.0); %Monocytes 9.4 % (0.0-10.0); Hematocrit 51.9 % (42.0-52.0); Hemoglobin 18.4 g/dL (14.0-18.0); Mean Corpuscular HGB CONC 35.5 g/dL (32.0-36.0); Mean Corpuscular Hemoglobin 30.5 pg (27.0-31.0); Mean Corpuscular Volume 85.9 fL (78.0-98.0); Mean Platelet Volume 10.2 fL (7.4-10.4); Platelet Count 166 10x3/uL (130-400); RBC Distribution Width 13.1 % (11.5-14.5); Red Blood Cell (RBC) Count 6.04 mill/uL (4.70-6.10)
[2023-12-13 21:15] LABS: ALT (SGPT) 13 U/L (8-55); AST (SGOT) 12 U/L (5-34); Albumin 3.3 g/dL (3.4-4.8); Alkaline Phosphatase 100 U/L (40-110); Anion Gap 12 mmol/L (10-20); BUN (Urea Nitrogen) 15 mg/dL (8.4-25.7); Bilirubin, Total 0.8 mg/dL (0.2-1.2); Calc. Creatinine Clearance 0 mL/min (70-130); Carbon Dioxide 23 mmol/L (23-31); Chloride 107 mmol/L (98-107); Estimated GFR 53; Globulin 2.8 g/dL (2.4-3.5); Glucose 228 mg/dL (80-115); Potassium 3.6 mmol/L (3.5-5.1); Protein, Total 6.1 g/dL (5.8-8.1); Sodium 138 mmol/L (136-145)
[2023-12-13] MEDS ORDERED: Metoclopramide HCl 10 MG (2 mL) VIAL ONE (21:23)
[2023-12-13] MEDS ORDERED: diphenhydrAMINE 50 MG/ML VIAL ONE (21:23)
[2023-12-13] MEDS ORDERED: hydrALAZINE 20 MG/ML VIAL ONE ×2 (21:23→22:11)
[2023-12-13] MEDS ORDERED: Labetalol HCl 100 MG/20 ML VIAL ONE (22:20)
[2023-12-13] MEDS ORDERED: Lorazepam 2 MG/ML VIAL ONE (22:21)
[2023-12-13] MEDS ORDERED: Ketorolac Tromethamine 30 MG (1 mL) VIAL ONE (23:09)
[2023-12-14] MEDS ORDERED: fentaNYL 50 mcg/mL 1 mL Vial ONE (05:29)
[2023-12-14 06:40] LABS: CSF, Glucose 115 mg/dl (40-70); CSF, Protein 86.8 mg/dL (15-40)
[2023-12-14 06:44] LABS: CSF Source CSF; Clarity Clear (Clear); Tube # 1; Tube # 4
[2023-12-14 07:35] LABS: Color Of CSF Supernatant COLORLESS (Colorless); Tube # 2; Unspun CSF Color COLORLESS (Colorless)
== END 2023-12-14 07:42 | disposition home or self-care (01) ==
LOC: ERS 20:08
DX: R51.9 Headache, unspecified (principal); R54 Age-related physical debility; I10 Essential (primary) hypertension; E11.9 Type 2 diabetes mellitus without complications; F17.220 Nicotine dependence, chewing tobacco, uncomplicated; I25.2 Old myocardial infarction; Z95.5 Presence of coronary angioplasty implant and graft; Z79.82 Long term (current) use of aspirin; Z79.4 Long term (current) use of insulin; Z79.899 Other long term (current) drug therapy; Z86.73 Personal history of transient ischemic attack (TIA), and cerebral infarction without residual deficits
CPT/HCPCS: 70450; 80053; 82945; 84157; 84484; 85025; 87070; 87205; 89051; 93005; J0360; J1200; J1885; J2060; J2765; J3010; 36415; 62270; 96374; 96375; 96376

== ENCOUNTER 2024-03-17 | Emergency (ER) | payer MEDICARE ==
[2024-03-17 01:12] LABS: #Basophils 0.06 10x3/uL (0.0-0.2); %Basophils 0.9 % (0.0-1.0); %Eosinophils 1.5 % (0.0-10.0); %Lymphocytes 30.7 % (21.0-51.0); %Monocytes 9.3 % (0.0-10.0); Hematocrit 49.9 % (42.0-52.0); Hemoglobin 17.7 g/dL (14.0-18.0); Mean Corpuscular HGB CONC 35.5 g/dL (32.0-36.0); Mean Corpuscular Hemoglobin 30.1 pg (27.0-31.0); Mean Corpuscular Volume 84.9 fL (78.0-98.0); Mean Platelet Volume 10.3 fL (7.4-10.4); Platelet Count 154 10x3/uL (130-400); RBC Distribution Width 14.4 % (11.5-14.5); Red Blood Cell (RBC) Count 5.88 mill/uL (4.70-6.10)
[2024-03-17 01:25] LABS: INR-International Normal Ratio 1.1; Prothrombin Time 14.3 sec (12.0-14.7)
[2024-03-17 01:26] LABS: PTT 30.9 sec (22.9-36.1)
[2024-03-17 01:31] LABS: ALT (SGPT) 9 U/L (8-55); AST (SGOT) 11 U/L (5-34); Albumin 3.3 g/dL (3.4-4.8); Alkaline Phosphatase 105 U/L (40-110); Anion Gap 12 mmol/L (10-20); BUN (Urea Nitrogen) 13 mg/dL (8.4-25.7); Bilirubin, Total 0.9 mg/dL (0.2-1.2); Calc. Creatinine Clearance 0 mL/min (70-130); Calcium 9.2 mg/dL (7.8-10.44); Carbon Dioxide 24 mmol/L (23-31); Chloride 104 mmol/L (98-107); Estimated GFR 49; Globulin 3.8 g/dL (2.4-3.5); Glucose 248 mg/dL (80-115); Lipase 40 U/L (8-78); Potassium 3.5 mmol/L (3.5-5.1); Protein, Total 7.1 g/dL (5.8-8.1); Sodium 136 mmol/L (136-145)
[2024-03-17 01:37] LABS: Troponin I Less than 0.010 ng/mL (< 0.028)
[2024-03-17] MEDS ORDERED: Morphine 4 MG/ML VIAL ONE (02:16)
[2024-03-17 03:27] LABS: Bacteria/HPF None Seen HPF (None Seen); Bilirubin Negative (Negative); Blood, Urine Negative (Negative); CAUTI Indications for Culture Alt mental st,lethar; Clarity Clear (Clear); Glucose, Urine (Dipstick) Greater than 1000 mg/dL (Negative); Ketone, Urine Negative (Negative); Leukocyte Negative Leu/uL (Negative); Nitrite Negative (Negative); Protein, Urine (Dipstick) 50 mg/dL (Neg-Trace); RBC/HPF 0-3 HPF (0-3); Specific Gravity, Urine 1.023 (1.002-1.036); Squamous Epithelial None Seen HPF (0-3); Urobilinogen Normal mg/dL (Less than 2); WBC/HPF 0-3 HPF (0-3)
[2024-03-17 03:31] LABS: Urine Culture Reflex No No
[2024-03-17] MEDS ORDERED: Acetaminophen 500 MG TAB ONE (04:49)
[2024-03-17] MEDS ORDERED: Ketorolac Tromethamine 30 MG (1 mL) VIAL ONE (04:49)
[2024-03-17] MEDS ORDERED: Iopamidol-370 76% 500 ML MDV (1 ML CHARGE) ONE (09:27)
== END 2024-03-17 05:50 | disposition home or self-care (01) ==
LOC: ERS
DX: I88.0 Nonspecific mesenteric lymphadenitis (principal); K80.20 Calculus of gallbladder without cholecystitis without obstruction; I10 Essential (primary) hypertension; E11.9 Type 2 diabetes mellitus without complications; F17.220 Nicotine dependence, chewing tobacco, uncomplicated; Z79.4 Long term (current) use of insulin; Z79.82 Long term (current) use of aspirin
CPT/HCPCS: 71045; 71275; 74174; 80053; 81001; 83690; 84484; 85025; 85610; 85730; 93005; 96374; 96375; 99284; J1885; J2272; Q9967; 36415; J2270

== ENCOUNTER 2024-04-05 11:21 | Emergency (ER) | payer MEDICARE ==
[2024-04-05 12:40] LABS: #Basophils 0.05 10x3/uL (0.0-0.2); %Basophils 0.6 % (0.0-1.0); %Eosinophils 1.5 % (0.0-10.0); %Lymphocytes 25.2 % (21.0-51.0); %Monocytes 8.9 % (0.0-10.0); %Neutrophils 63.4 % (42.0-75.0); Hematocrit 51.3 % (42.0-52.0); Hemoglobin 18.1 g/dL (14.0-18.0); Mean Corpuscular HGB CONC 35.3 g/dL (32.0-36.0); Mean Corpuscular Volume 84.9 fL (78.0-98.0); Platelet Count 161 10x3/uL (130-400); RBC Distribution Width 14.3 % (11.5-14.5); Red Blood Cell (RBC) Count 6.04 mill/uL (4.70-6.10)
[2024-04-05 12:57] LABS: ALT (SGPT) Less than 7 U/L (Less than 45); AST (SGOT) 11 U/L (11-34); Albumin 3.3 g/dL (3.1-4.5); Alkaline Phosphatase 96 U/L (40-110); Anion Gap 12 mmol/L (10-20); BUN (Urea Nitrogen) 9 mg/dL (8.4-25.7); Bilirubin, Total 1.3 mg/dL (0.3-1.2); Calc. Creatinine Clearance 0 mL/min (70-130); Calcium 8.8 mg/dL (7.8-10.44); Carbon Dioxide 28 mmol/L (23-31); Chloride 102 mmol/L (98-107); Estimated GFR 59; Globulin 3.5 g/dL (2.4-3.5); Glucose 264 mg/dL (80-115); Potassium 3.4 mmol/L (3.5-5.1); Protein, Total 6.8 g/dL (5.8-8.1); Sodium 139 mmol/L (136-145)
[2024-04-05 13:00] LABS: Troponin I 0.011 ng/mL (< 0.028)
[2024-04-05] MEDS ORDERED: Iopamidol-370 76% 500 ML MDV (1 ML CHARGE) ONE (13:29)
[2024-04-05] MEDS ORDERED: Morphine 4 MG/ML VIAL ONE ×2 (14:13→17:37)
[2024-04-05] MEDS ORDERED: Acetaminophen 500 MG TAB ONE (14:13)
[2024-04-05] MEDS ORDERED: Labetalol HCl 100 MG/20 ML VIAL ONE (18:55)
== END 2024-04-05 19:00 | disposition home or self-care (01) ==
LOC: ERS 11:21
DX: M25.511 Pain in right shoulder (principal); E11.9 Type 2 diabetes mellitus without complications; I10 Essential (primary) hypertension; F17.220 Nicotine dependence, chewing tobacco, uncomplicated; Z95.5 Presence of coronary angioplasty implant and graft; W22.8XXA Striking against or struck by other objects, initial encounter
CPT/HCPCS: 71045; 71275; 73030; 80053; 83880; 84484; 85025; 85379; 93005; 96374; 96375; 96376; 99284; J2270; Q9967; 36415

== ENCOUNTER 2024-11-17 12:09 | Emergency (ER) | payer MEDICARE, OTHER ==
[2024-11-17] MEDS ORDERED: HYDROcodone/Acetaminophen 10/325 mg Tablet ONE (12:45)
== END 2024-11-17 17:39 | disposition home or self-care (01) ==
LOC: ERS 12:09
DX: M25.561 Pain in right knee (principal); M25.531 Pain in right wrist; I25.2 Old myocardial infarction; E11.9 Type 2 diabetes mellitus without complications; E78.5 Hyperlipidemia, unspecified; I10 Essential (primary) hypertension; F17.220 Nicotine dependence, chewing tobacco, uncomplicated; Z86.73 Personal history of transient ischemic attack (TIA), and cerebral infarction without residual deficits; Z95.5 Presence of coronary angioplasty implant and graft; Z79.82 Long term (current) use of aspirin; Z79.899 Other long term (current) drug therapy; W19.XXXA Unspecified fall, initial encounter

== ENCOUNTER 2024-11-20 09:18 | Inpatient (IN) | payer OTHER, MEDICARE ==
[2024-11-20 10:09] LABS: #Basophils 0.07 10x3/uL (0.0-0.2); #Eosinophils 0.10 10x3/uL (0.0-0.7); #Monocytes 1.02 10x3/uL (0.11-0.59); #Neutrophils 6.93 10x3/uL (1.40-6.50); %Basophils 0.7 % (0.0-1.0); %Eosinophils 1.0 % (0.0-10.0); %Lymphocytes 17.2 % (21.0-51.0); %Monocytes 10.3 % (0.0-10.0); %Neutrophils 70.2 % (42.0-75.0); Hematocrit 49.2 % (42.0-52.0); Hemoglobin 17.2 g/dL (14.0-18.0); Mean Corpuscular Hemoglobin 28.9 pg (27.0-31.0); Mean Corpuscular Volume 82.7 fL (78.0-98.0); Platelet Count 207 10x3/uL (130-400); Red Blood Cell (RBC) Count 5.95 mill/uL (4.70-6.10); White Blood Cell (WBC) Count 9.88 10x3/uL (4.8-10.8)
[2024-11-20 10:34] LABS: ALT (SGPT) 39 U/L (Less than 45); AST (SGOT) 27 U/L (11-34); Albumin 2.5 g/dL (3.1-4.5); Alkaline Phosphatase 107 U/L (40-110); Anion Gap 14 mmol/L (10-20); BUN (Urea Nitrogen) 34 mg/dL (8.4-25.7); Bilirubin, Total 1.6 mg/dL (0.3-1.2); Calc. Creatinine Clearance 0 mL/min (70-130); Calcium 9.3 mg/dL (7.8-10.44); Carbon Dioxide 22 mmol/L (23-31); Chloride 99 mmol/L (98-107); Globulin 4.3 g/dL (2.4-3.5); Glucose 311 mg/dL (83-110); Lipase 38 U/L (8-78); Potassium 4.2 mmol/L (3.5-5.1); Sodium 131 mmol/L (136-145)
[2024-11-20] MEDS ORDERED: Nitroglycerin 0.4 MG TAB (25 Tab Bottle) SL PRN (13:26)
[2024-11-20] MEDS ORDERED: Dextrose 50% Abboject 50 ML SYRINGE SLOW IVP PRN (13:40)
[2024-11-20] MEDS ORDERED: Glucagon 1 MG/ML KIT IM PRN (13:40)
[2024-11-20] MEDS ORDERED: Iopamidol-370 76% 500 ML MDV (1 ML CHARGE) ONE (15:17)
[2024-11-20 16:10] VITALS: BMI 27.3
[2024-11-20] MEDS: Aspirin 325 MG TAB PO SCH (16:16)
[2024-11-21 04:57] LABS: #Basophils 0.09 10x3/uL (0.0-0.2); #Eosinophils 0.07 10x3/uL (0.0-0.7); #Monocytes 1.07 10x3/uL (0.11-0.59); #Neutrophils 7.26 10x3/uL (1.40-6.50); %Basophils 0.9 % (0.0-1.0); %Eosinophils 0.7 % (0.0-10.0); %Lymphocytes 16.8 % (21.0-51.0); %Monocytes 10.4 % (0.0-10.0); %Neutrophils 70.5 % (42.0-75.0); Hematocrit 48.6 % (42.0-52.0); Hemoglobin 16.6 g/dL (14.0-18.0); Mean Corpuscular Hemoglobin 28.8 pg (27.0-31.0); Mean Corpuscular Volume 84.2 fL (78.0-98.0); Platelet Count 232 10x3/uL (130-400); Red Blood Cell (RBC) Count 5.77 mill/uL (4.70-6.10); White Blood Cell (WBC) Count 10.29 10x3/uL (4.8-10.8)
[2024-11-21 05:05] LABS: Calcium 9.3 mg/dL (7.8-10.44); Chloride 100 mmol/L (98-107); Potassium 4.5 mmol/L (3.5-5.1); Sodium 134 mmol/L (136-145)
[2024-11-21 05:31] LABS: Anion Gap 20 mmol/L (10-20); BUN (Urea Nitrogen) 47 mg/dL (8.4-25.7); Calc. Creatinine Clearance 40 mL/min (70-130); Carbon Dioxide 18 mmol/L (23-31)
[2024-11-21 05:32] LABS: Glucose 230 mg/dL (83-110)
[2024-11-21] MEDS: Enoxaparin 40 MG (0.4 mL) SYRINGE SC SCH (08:37)
[2024-11-21] MEDS: Aspirin Chewable 81 MG TAB PO SCH (08:37)
[2024-11-21 16:44] VITALS: BMI 27.3
[2024-11-21] MEDS: Insulin Glargine 30 UNITS/0.3 ML VIAL SC SCH (20:11)
[2024-11-22 04:43] LABS: #Basophils 0.07 10x3/uL (0.0-0.2); #Eosinophils 0.11 10x3/uL (0.0-0.7); #Monocytes 0.89 10x3/uL (0.11-0.59); #Neutrophils 6.59 10x3/uL (1.40-6.50); %Basophils 0.8 % (0.0-1.0); %Eosinophils 1.2 % (0.0-10.0); %Lymphocytes 16.5 % (21.0-51.0); %Monocytes 9.6 % (0.0-10.0); %Neutrophils 71.1 % (42.0-75.0); Hematocrit 49.5 % (42.0-52.0); Hemoglobin 16.7 g/dL (14.0-18.0); Mean Corpuscular Hemoglobin 28.8 pg (27.0-31.0); Mean Corpuscular Volume 85.5 fL (78.0-98.0); Platelet Count 245 10x3/uL (130-400); Red Blood Cell (RBC) Count 5.79 mill/uL (4.70-6.10); White Blood Cell (WBC) Count 9.26 10x3/uL (4.8-10.8)
[2024-11-22 05:00] LABS: Anion Gap 13 mmol/L (10-20); BUN (Urea Nitrogen) 48 mg/dL (8.4-25.7); Calc. Creatinine Clearance 45 mL/min (70-130); Calcium 9.4 mg/dL (7.8-10.44); Carbon Dioxide 24 mmol/L (23-31); Chloride 102 mmol/L (98-107); Glucose 204 mg/dL (83-110); Potassium 4.4 mmol/L (3.5-5.1); Sodium 135 mmol/L (136-145)
[2024-11-22] MEDS: Melatonin 3 MG TAB PO PRN (20:01)
[2024-11-24 04:46] LABS: #Basophils 0.08 10x3/uL (0.0-0.2); #Eosinophils 0.20 10x3/uL (0.0-0.7); #Monocytes 1.10 10x3/uL (0.11-0.59); #Neutrophils 6.52 10x3/uL (1.40-6.50); %Basophils 0.8 % (0.0-1.0); %Eosinophils 2.1 % (0.0-10.0); %Lymphocytes 16.6 % (21.0-51.0); %Monocytes 11.5 % (0.0-10.0); %Neutrophils 68.0 % (42.0-75.0); Hematocrit 48.4 % (42.0-52.0); Hemoglobin 16.0 g/dL (14.0-18.0); Mean Corpuscular Hemoglobin 28.2 pg (27.0-31.0); Mean Corpuscular Volume 85.4 fL (78.0-98.0); Platelet Count 283 10x3/uL (130-400); Red Blood Cell (RBC) Count 5.67 mill/uL (4.70-6.10); White Blood Cell (WBC) Count 9.59 10x3/uL (4.8-10.8)
[2024-11-24 05:02] LABS: Anion Gap 15 mmol/L (10-20); BUN (Urea Nitrogen) 40 mg/dL (8.4-25.7); Calc. Creatinine Clearance 51 mL/min (70-130); Calcium 9.2 mg/dL (7.8-10.44); Carbon Dioxide 19 mmol/L (23-31); Chloride 109 mmol/L (98-107); Glucose 213 mg/dL (83-110); Potassium 4.6 mmol/L (3.5-5.1); Sodium 138 mmol/L (136-145)
[2024-11-25 04:50] LABS: #Basophils 0.06 10x3/uL (0.0-0.2); #Eosinophils 0.14 10x3/uL (0.0-0.7); #Monocytes 1.05 10x3/uL (0.11-0.59); #Neutrophils 6.29 10x3/uL (1.40-6.50); %Basophils 0.7 % (0.0-1.0); %Eosinophils 1.5 % (0.0-10.0); %Lymphocytes 17.0 % (21.0-51.0); %Monocytes 11.4 % (0.0-10.0); %Neutrophils 68.4 % (42.0-75.0); Hematocrit 40.0 % (42.0-52.0); Hemoglobin 12.7 g/dL (14.0-18.0); Mean Corpuscular Hemoglobin 28.6 pg (27.0-31.0); Mean Corpuscular Volume 90.1 fL (78.0-98.0); Platelet Count 229 10x3/uL (130-400); Red Blood Cell (RBC) Count 4.44 mill/uL (4.70-6.10); White Blood Cell (WBC) Count 9.19 10x3/uL (4.8-10.8)
[2024-11-25 05:12] LABS: Anion Gap 11 mmol/L (10-20); BUN (Urea Nitrogen) 34 mg/dL (8.4-25.7); Calc. Creatinine Clearance 74 mL/min (70-130); Calcium 6.0 mg/dL (7.8-10.44); Carbon Dioxide 15 mmol/L (23-31); Chloride 122 mmol/L (98-107); Glucose 115 mg/dL (83-110); Potassium 3.1 mmol/L (3.5-5.1); Sodium 145 mmol/L (136-145)
[2024-11-25] MEDS: Potassium Bicarbonate/Cit Ac 20 MEQ TAB PO SCH (06:04)
[2024-11-25 09:46] LABS: Anion Gap 18 mmol/L (10-20); BUN (Urea Nitrogen) 41 mg/dL (8.4-25.7); Calc. Creatinine Clearance 50 mL/min (70-130); Calcium 9.6 mg/dL (7.8-10.44); Carbon Dioxide 16 mmol/L (23-31); Chloride 109 mmol/L (98-107); Glucose 181 mg/dL (83-110); Magnesium 2.0 mg/dL (1.6-2.6); Potassium 5.4 mmol/L (3.5-5.1); Sodium 138 mmol/L (136-145)
[2024-11-25 10:28] LABS: #Basophils 0.10 10x3/uL (0.0-0.2); #Eosinophils 0.16 10x3/uL (0.0-0.7); #Monocytes 1.27 10x3/uL (0.11-0.59); #Neutrophils 8.45 10x3/uL (1.40-6.50); %Basophils 0.8 % (0.0-1.0); %Eosinophils 1.3 % (0.0-10.0); %Lymphocytes 15.4 % (21.0-51.0); %Monocytes 10.6 % (0.0-10.0); %Neutrophils 70.6 % (42.0-75.0); Hematocrit 51.1 % (42.0-52.0); Hemoglobin 16.6 g/dL (14.0-18.0); Mean Corpuscular Hemoglobin 28.6 pg (27.0-31.0); Mean Corpuscular Volume 88.0 fL (78.0-98.0); Platelet Count 296 10x3/uL (130-400); Red Blood Cell (RBC) Count 5.81 mill/uL (4.70-6.10); White Blood Cell (WBC) Count 11.99 10x3/uL (4.8-10.8)
[2024-11-25 12:01] LABS: Bacteria/HPF None Seen HPF (None Seen); CAUTI Indications for Culture Alt mental st,lethar; Glucose, Urine (Dipstick) 100 mg/dL (Negative); Leukocyte Negative Leu/uL (Negative); Protein, Urine (Dipstick) 70 mg/dL (Neg-Trace); RBC/HPF 0-3 HPF (0-3); Specific Gravity, Urine 1.017 (1.002-1.036); WBC/HPF 0-3 HPF (0-3)
[2024-11-25 12:04] LABS: Urine Culture Reflex No No
[2024-11-25 15:00] LABS: Anion Gap 19 mmol/L (10-20); BUN (Urea Nitrogen) 37 mg/dL (8.4-25.7); Calc. Creatinine Clearance 57 mL/min (70-130); Calcium 9.3 mg/dL (7.8-10.44); Carbon Dioxide 15 mmol/L (23-31); Chloride 109 mmol/L (98-107); Glucose 151 mg/dL (83-110); Potassium 5.2 mmol/L (3.5-5.1); Sodium 138 mmol/L (136-145)
[2024-11-25] MEDS: hydrALAZINE 20 MG/ML VIAL SLOW IVP PRN (16:19)
[2024-11-25] MEDS: Acetaminophen 325 MG TAB PO PRN (22:16)
[2024-11-26 00:16] LABS: #Basophils 0.08 10x3/uL (0.0-0.2); #Eosinophils 0.07 10x3/uL (0.0-0.7); #Monocytes 1.16 10x3/uL (0.11-0.59); #Neutrophils 8.31 10x3/uL (1.40-6.50); %Basophils 0.7 % (0.0-1.0); %Eosinophils 0.6 % (0.0-10.0); %Lymphocytes 11.4 % (21.0-51.0); %Monocytes 10.6 % (0.0-10.0); %Neutrophils 75.8 % (42.0-75.0); Hematocrit 47.3 % (42.0-52.0); Hemoglobin 15.6 g/dL (14.0-18.0); Mean Corpuscular Hemoglobin 28.4 pg (27.0-31.0); Mean Corpuscular Volume 86.2 fL (78.0-98.0); Platelet Count 314 10x3/uL (130-400); Red Blood Cell (RBC) Count 5.49 mill/uL (4.70-6.10); White Blood Cell (WBC) Count 10.97 10x3/uL (4.8-10.8)
[2024-11-26 00:30] LABS: ALT (SGPT) 26 U/L (Less than 45); AST (SGOT) 43 U/L (11-34); Albumin 2.2 g/dL (3.1-4.5); Alkaline Phosphatase 123 U/L (40-110); Anion Gap 18 mmol/L (10-20); BUN (Urea Nitrogen) 35 mg/dL (8.4-25.7); Bilirubin, Total 2.2 mg/dL (0.3-1.2); Calc. Creatinine Clearance 58 mL/min (70-130); Calcium 8.9 mg/dL (7.8-10.44); Carbon Dioxide 14 mmol/L (23-31); Chloride 108 mmol/L (98-107); Globulin 4.2 g/dL (2.4-3.5); Glucose 185 mg/dL (83-110); Magnesium 1.7 mg/dL (1.6-2.6); Potassium 5.0 mmol/L (3.5-5.1); Sodium 135 mmol/L (136-145)
[2024-11-26 02:14] LABS: Influenza A by NAA Not Detected (NotDetected); Influenza B by NAA Not Detected (NotDetected); SARS-CoV-2 NAA Rapid Test Not Detected (NotDetected)
[2024-11-26 05:15] LABS: #Basophils 0.09 10x3/uL (0.0-0.2); #Eosinophils 0.13 10x3/uL (0.0-0.7); #Monocytes 1.50 10x3/uL (0.11-0.59); #Neutrophils 8.36 10x3/uL (1.40-6.50); %Basophils 0.8 % (0.0-1.0); %Eosinophils 1.1 % (0.0-10.0); %Lymphocytes 14.6 % (21.0-51.0); %Monocytes 12.5 % (0.0-10.0); %Neutrophils 69.7 % (42.0-75.0); Hematocrit 50.4 % (42.0-52.0); Hemoglobin 16.3 g/dL (14.0-18.0); Mean Corpuscular Hemoglobin 28.3 pg (27.0-31.0); Mean Corpuscular Volume 87.5 fL (78.0-98.0); Platelet Count 314 10x3/uL (130-400); Red Blood Cell (RBC) Count 5.76 mill/uL (4.70-6.10); White Blood Cell (WBC) Count 11.98 10x3/uL (4.8-10.8)
[2024-11-26 05:30] LABS: Anion Gap 18 mmol/L (10-20); BUN (Urea Nitrogen) 33 mg/dL (8.4-25.7); Calc. Creatinine Clearance 64 mL/min (70-130); Calcium 9.6 mg/dL (7.8-10.44); Carbon Dioxide 18 mmol/L (23-31); Chloride 107 mmol/L (98-107); Glucose 175 mg/dL (83-110); Potassium 5.0 mmol/L (3.5-5.1); Sodium 138 mmol/L (136-145)
[2024-11-26] MEDS: NIFEdipine XL 30 MG ER.TAB PO SCH (08:23)
[2024-11-26] MEDS ORDERED: Iopamidol 370 76% 100 ML VIAL ONE (14:24)
[2024-11-26] MEDS: Nystatin 500,000 UNITS/5 ML UDCUP SSW SCH (16:56)
[2024-11-27 04:50] LABS: #Basophils 0.08 10x3/uL (0.0-0.2); #Eosinophils 0.21 10x3/uL (0.0-0.7); #Monocytes 0.91 10x3/uL (0.11-0.59); #Neutrophils 6.17 10x3/uL (1.40-6.50); %Basophils 0.9 % (0.0-1.0); %Eosinophils 2.4 % (0.0-10.0); %Lymphocytes 15.1 % (21.0-51.0); %Monocytes 10.3 % (0.0-10.0); %Neutrophils 69.9 % (42.0-75.0); Hematocrit 47.6 % (42.0-52.0); Hemoglobin 15.7 g/dL (14.0-18.0); Mean Corpuscular Hemoglobin 28.8 pg (27.0-31.0); Mean Corpuscular Volume 87.3 fL (78.0-98.0); Platelet Count 320 10x3/uL (130-400); Red Blood Cell (RBC) Count 5.45 mill/uL (4.70-6.10); White Blood Cell (WBC) Count 8.82 10x3/uL (4.8-10.8)
[2024-11-27 07:56] LABS: Anion Gap 13 mmol/L (10-20); BUN (Urea Nitrogen) 34 mg/dL (8.4-25.7); Calc. Creatinine Clearance 60 mL/min (70-130); Calcium 9.1 mg/dL (7.8-10.44); Carbon Dioxide 17 mmol/L (23-31); Chloride 110 mmol/L (98-107); Glucose 116 mg/dL (83-110); Magnesium 1.8 mg/dL (1.6-2.6); Potassium 4.3 mmol/L (3.5-5.1); Sodium 136 mmol/L (136-145)
[2024-11-28 05:19] LABS: #Basophils 0.05 10x3/uL (0.0-0.2); #Eosinophils 0.21 10x3/uL (0.0-0.7); #Monocytes 0.68 10x3/uL (0.11-0.59); #Neutrophils 4.84 10x3/uL (1.40-6.50); %Basophils 0.7 % (0.0-1.0); %Eosinophils 3.0 % (0.0-10.0); %Lymphocytes 16.9 % (21.0-51.0); %Monocytes 9.6 % (0.0-10.0); %Neutrophils 68.2 % (42.0-75.0); Hematocrit 44.1 % (42.0-52.0); Hemoglobin 15.3 g/dL (14.0-18.0); Mean Corpuscular Hemoglobin 29.4 pg (27.0-31.0); Mean Corpuscular Volume 84.8 fL (78.0-98.0); Platelet Count 380 10x3/uL (130-400); Red Blood Cell (RBC) Count 5.20 mill/uL (4.70-6.10); White Blood Cell (WBC) Count 7.09 10x3/uL (4.8-10.8)
[2024-11-28 05:34] LABS: Anion Gap 13 mmol/L (10-20); BUN (Urea Nitrogen) 28 mg/dL (8.4-25.7); Calc. Creatinine Clearance 61 mL/min (70-130); Calcium 9.1 mg/dL (7.8-10.44); Carbon Dioxide 17 mmol/L (23-31); Chloride 110 mmol/L (98-107); Glucose 147 mg/dL (83-110); Potassium 4.4 mmol/L (3.5-5.1); Sodium 136 mmol/L (136-145)
[2024-11-28] MEDS: Insulin Glargine 30 UNITS/0.3 ML VIAL SC SCH (21:00)
[2024-11-29 05:21] LABS: #Basophils 0.07 10x3/uL (0.0-0.2); #Eosinophils 0.18 10x3/uL (0.0-0.7); #Monocytes 0.77 10x3/uL (0.11-0.59); #Neutrophils 4.43 10x3/uL (1.40-6.50); %Basophils 1.0 % (0.0-1.0); %Eosinophils 2.6 % (0.0-10.0); %Lymphocytes 20.7 % (21.0-51.0); %Monocytes 11.0 % (0.0-10.0); %Neutrophils 63.3 % (42.0-75.0); Hematocrit 45.9 % (42.0-52.0); Hemoglobin 15.2 g/dL (14.0-18.0); Mean Corpuscular Hemoglobin 28.1 pg (27.0-31.0); Mean Corpuscular Volume 85.0 fL (78.0-98.0); Platelet Count 401 10x3/uL (130-400); Red Blood Cell (RBC) Count 5.40 mill/uL (4.70-6.10); White Blood Cell (WBC) Count 7.00 10x3/uL (4.8-10.8)
[2024-11-29 05:40] LABS: Anion Gap 14 mmol/L (10-20); BUN (Urea Nitrogen) 19 mg/dL (8.4-25.7); Calc. Creatinine Clearance 66 mL/min (70-130); Calcium 9.2 mg/dL (7.8-10.44); Carbon Dioxide 19 mmol/L (23-31); Cardiac Risk 6.9 (Less than 4.5); Chloride 107 mmol/L (98-107); Cholesterol 118 mg/dl (< 200 Desired); Glucose 98 mg/dL (83-110); HDL Cholesterol 17 mg/dL (>60 Neg Risk); LDL Cholesterol, Calculated 79 mg/dL; Potassium 4.2 mmol/L (3.5-5.1); Sodium 136 mmol/L (136-145); Triglycerides 111 mg/dL (Less than 150)
[2024-11-29 06:05] LABS: Free T4 (Free Thyroxine) 0.93 ng/dL (0.70-1.48); Thyroid Stimulating Hormone 1.5434 uIU/mL (0.35-4.94); Vitamin B12 315.0 pg/mL (211-911)
[2024-11-30 13:04] VITALS: BP 124/74; TEMP 97.6
== END 2024-11-30 18:00 | DRG 313 ==
LOC: ERS 09:18 → 2NO 12:41 → OBSVTOIN 11-21 15:03 → PCU 11-29 13:37
PROVIDERS: ADMIT Internal Medicine; ATTEND Family Medicine
PROC: 05HY33Z Insertion of Infusion Device into Upper Vein, Percutaneous Approach (ICD-10-PCS; 2024-11-20)
PROC: 3E03329 Introduction of Other Anti-infective into Peripheral Vein, Percutaneous Approach (ICD-10-PCS; principal; 2024-11-26)
DX: R07.89 Other chest pain (principal); G93.41 Metabolic encephalopathy; J69.0 Pneumonitis due to inhalation of food and vomit; S42.301A Unspecified fracture of shaft of humerus, right arm, initial encounter for closed fracture; N17.9 Acute kidney failure, unspecified; F05 Delirium due to known physiological condition; E87.20 Acidosis, unspecified; R29.6 Repeated falls; I25.10 Atherosclerotic heart disease of native coronary artery without angina pectoris; E11.9 Type 2 diabetes mellitus without complications; I10 Essential (primary) hypertension; E78.5 Hyperlipidemia, unspecified; R53.83 Other fatigue; R53.81 Other malaise; F17.220 Nicotine dependence, chewing tobacco, uncomplicated; I25.2 Old myocardial infarction; Z79.899 Other long term (current) drug therapy; Z79.82 Long term (current) use of aspirin; Z86.73 Personal history of transient ischemic attack (TIA), and cerebral infarction without residual deficits; Z95.1 Presence of aortocoronary bypass graft; Z98.890 Other specified postprocedural states; Z95.5 Presence of coronary angioplasty implant and graft; W19.XXXA Unspecified fall, initial encounter; R79.89 Other specified abnormal findings of blood chemistry; R45.1 Restlessness and agitation; Z91.148 Patient's other noncompliance with medication regimen for other reason
CPT/HCPCS: 36415; 36416; 70450; 70491; 70551; 71045; 71260; 71275; 72170; 74177; 78452; 80048; 80053; 80061; 81001; 82607; 83036; 83605; 83690; 83735; 83880; 84145; 84439; 84443; 84484; 85025; 85379; 87040; 87636; 93005; 93017; 93306; 93880; 94760; 96372; A9502; G0378; J0360; J1650; J1815; J2543; J2785; J3486; J7030; J7120; Q9967

== ENCOUNTER 2025-01-24 07:36 | Day surgery (SDC) | payer OTHER, MEDICAID ==
[2025-01-24] MEDS ORDERED: Lidocaine 1% PF 5 ML VIAL ONE (08:51)
[2025-01-24] MEDS ORDERED: PROPOFOL 200 MG/20 ML VIAL ONE (09:54)
== END 2025-01-24 11:45 ==
LOC: SDC 07:36
PROVIDERS: ATTEND Internal Medicine
PROC: 0DB98ZX Excision of Duodenum, Via Natural or Artificial Opening Endoscopic, Diagnostic (ICD-10-PCS; principal; 2025-01-24)
PROC: 0D758ZZ Dilation of Esophagus, Via Natural or Artificial Opening Endoscopic (ICD-10-PCS; 2025-01-24)
DX: K29.80 Duodenitis without bleeding (principal); R13.12 Dysphagia, oropharyngeal phase; I25.10 Atherosclerotic heart disease of native coronary artery without angina pectoris; Z86.73 Personal history of transient ischemic attack (TIA), and cerebral infarction without residual deficits; E11.9 Type 2 diabetes mellitus without complications; Z79.82 Long term (current) use of aspirin; Z79.4 Long term (current) use of insulin
CPT/HCPCS: 43239; 43248; 82962; J2704; 36416; 88305

== ENCOUNTER 2025-02-04 14:51 | Outpatient (CLI) | payer OTHER, MEDICAID ==
[2025-02-04 15:50] LABS: Estimated GFR - POC 59.0
== END 2025-02-04 14:52 | disposition home or self-care (01) ==
LOC: CT 14:51
PROVIDERS: ATTEND Emergency Medicine
DX: R29.898 Other symptoms and signs involving the musculoskeletal system (principal); R59.0 Localized enlarged lymph nodes; J98.4 Other disorders of lung; K80.20 Calculus of gallbladder without cholecystitis without obstruction; J18.1 Lobar pneumonia, unspecified organism
CPT/HCPCS: 36415; 74177; 82565

== ENCOUNTER 2025-02-16 20:39 | Inpatient (IN) | payer OTHER, MEDICAID ==
[~2025-02-16 20:39] MED LIST changes: -Iopamidol 370 76% 100 ML VIAL ONE; +Iopamidol-370 76% 500 ML MDV (1 ML CHARGE) ONE
[2025-02-16 21:17] LABS: Hematocrit 44.3 % (42.0-52.0); Hemoglobin 14.8 g/dL (14.0-18.0); Mean Corpuscular Hemoglobin 27.1 pg (27.0-31.0); Mean Corpuscular Volume 81.1 fL (78.0-98.0); Platelet Count 143 10x3/uL (130-400); Red Blood Cell (RBC) Count 5.46 mill/uL (4.70-6.10); White Blood Cell (WBC) Count 13.97 10x3/uL (4.8-10.8)
[2025-02-16 21:26] LABS: ALT (SGPT) 25 U/L (Less than 45); AST (SGOT) 36 U/L (11-34); Albumin 2.6 g/dL (3.1-4.5); Alkaline Phosphatase 85 U/L (40-110); Anion Gap 17 mmol/L (10-20); BUN (Urea Nitrogen) 28 mg/dL (8.4-25.7); Bilirubin, Total 0.9 mg/dL (0.3-1.2); Calc. Creatinine Clearance 0 mL/min (70-130); Calcium 8.8 mg/dL (7.8-10.44); Carbon Dioxide 20 mmol/L (23-31); Chloride 101 mmol/L (98-107); Globulin 4.7 g/dL (2.4-3.5); Glucose 186 mg/dL (83-110); Potassium 4.1 mmol/L (3.5-5.1); Sodium 134 mmol/L (136-145)
[2025-02-16 21:40] LABS: Platelet Adequacy Comment Platelets Normal; Polychromasia SLIGHT = 2-3 cells HPF (0-2)
[2025-02-16 23:16] LABS: Glucose, Urine (Dipstick) Negative (Negative); Leukocyte Negative (Negative); Protein, Urine (Dipstick) > or equal to 300 mg/dL (Neg-Trace); Specific Gravity, Urine Greater/Equal 1.030 (1.005-1.030)
[2025-02-16 23:18] LABS: CAUTI Indications for Culture Fever or rigors; RBC/HPF 0-3 HPF (0-3); WBC/HPF 0-3 HPF (0-3)
[2025-02-16 23:19] LABS: Bacteria/HPF 1+ HPF (None Seen)
[2025-02-16 23:20] LABS: Urine Culture Reflex No No
[2025-02-16] MEDS ORDERED: Ondansetron PF 4 MG/2 ML Vial IVP PRN (23:49)
[2025-02-17] MEDS ORDERED: Dextrose 50% Abboject 50 ML SYRINGE SLOW IVP PRN (00:02)
[2025-02-17] MEDS ORDERED: Glucagon 1 MG/ML KIT IM PRN (00:02)
[2025-02-17] MEDS ORDERED: Albuterol 200 PUFF (6.7GM INHALER) INH PRN (00:07)
[2025-02-17] MEDS: VANCOMYCIN 1.75 GM/350 ML Premix BAG IVPB SCH (00:59)
[2025-02-17 01:00] LABS: Legionella Urinary Ag Negative (Negative); Strep pneumo Urine Ag NEGATIVE (NEGATIVE)
[2025-02-17 04:47] LABS: #Basophils Less than 0.03 10x3/uL (0.0-0.2); #Eosinophils Less than 0.03 10x3/uL (0.0-0.7); #Monocytes 0.84 10x3/uL (0.11-0.59); #Neutrophils 6.94 10x3/uL (1.40-6.50); %Basophils 0.2 % (0.0-1.0); %Eosinophils 0.0 % (0.0-10.0); %Lymphocytes 17.6 % (21.0-51.0); %Monocytes 8.8 % (0.0-10.0); %Neutrophils 73.0 % (42.0-75.0); Hematocrit 41.4 % (42.0-52.0); Hemoglobin 13.4 g/dL (14.0-18.0); Mean Corpuscular Hemoglobin 26.2 pg (27.0-31.0); Mean Corpuscular Volume 81.0 fL (78.0-98.0); Platelet Count 133 10x3/uL (130-400); Red Blood Cell (RBC) Count 5.11 mill/uL (4.70-6.10); White Blood Cell (WBC) Count 9.52 10x3/uL (4.8-10.8)
[2025-02-17 04:54] LABS: Anion Gap 14 mmol/L (10-20); BUN (Urea Nitrogen) 25 mg/dL (8.4-25.7); Calc. Creatinine Clearance 50 mL/min (70-130); Calcium 7.8 mg/dL (7.8-10.44); Carbon Dioxide 19 mmol/L (23-31); Chloride 106 mmol/L (98-107); Glucose 96 mg/dL (83-110); Potassium 4.3 mmol/L (3.5-5.1); Sodium 135 mmol/L (136-145)
[2025-02-17 06:39] VITALS: BMI 25.5
[2025-02-17] MEDS ORDERED: FLU (Fluad Triv) 25-26 (65UP)PF 45 MCG/0.5 ML Syringe IM ONE (09:00)
[2025-02-17] MEDS ORDERED: PNEUMOC 20-VAL CONJ-DIP CRM/PF 0.5 ML SYRINGE IM ONE (09:00)
[2025-02-17] MEDS: Acetaminophen 325 MG TAB PO PRN (09:40)
[2025-02-17] MEDS: guaiFENesin/DM ER PO SCH (09:41)
[2025-02-17] MEDS: Heparin 5,000 UNITS/ML VIAL SC SCH (09:41)
[2025-02-17] MEDS ORDERED: Melatonin 3 MG TAB PO PRN (10:58)
[2025-02-17 12:42] LABS: Actual Bicarbonate (HCO3v) 19.7 mEq/L (22-28); Base Excess -2.3 mEq/L (-2.0 to +3.0); Calcium, Ionized (venous) 1.03 mmol/L (1.16-1.32); Chloride (VBG) 103 mmol/L (98-106); Hematocrit-VBG 41 % (42.0-52.0); Hemoglobin (Hb) 13.8 g/dL (12.6-17.4); Potassium (VBG) 4.13 mmol/L (3.70-5.30); Sodium 137 mmol/L (133-146)
[2025-02-17] MEDS: Insulin Glargine 30 UNITS/0.3 ML VIAL SC SCH (20:32)
[2025-02-17] MEDS: NIRMATRELVIR 150 MG/RITONAVIR 100 MG (RENAL) TAB PO SCH (20:33)
[2025-02-18 05:29] LABS: #Basophils Less than 0.03 10x3/uL (0.0-0.2); #Eosinophils Less than 0.03 10x3/uL (0.0-0.7); #Monocytes 0.26 10x3/uL (0.11-0.59); #Neutrophils 5.52 10x3/uL (1.40-6.50); %Basophils 0.1 % (0.0-1.0); %Eosinophils 0.0 % (0.0-10.0); %Lymphocytes 15.6 % (21.0-51.0); %Monocytes 3.8 % (0.0-10.0); %Neutrophils 79.6 % (42.0-75.0); Hematocrit 39.2 % (42.0-52.0); Hemoglobin 12.9 g/dL (14.0-18.0); Mean Corpuscular Hemoglobin 27.0 pg (27.0-31.0); Mean Corpuscular Volume 82.0 fL (78.0-98.0); Platelet Count 111 10x3/uL (130-400); Red Blood Cell (RBC) Count 4.78 mill/uL (4.70-6.10); White Blood Cell (WBC) Count 6.93 10x3/uL (4.8-10.8)
[2025-02-18 05:33] LABS: Anion Gap 16 mmol/L (10-20); BUN (Urea Nitrogen) 29 mg/dL (8.4-25.7); Calc. Creatinine Clearance 59 mL/min (70-130); Calcium 8.6 mg/dL (7.8-10.44); Carbon Dioxide 17 mmol/L (23-31); Chloride 108 mmol/L (98-107); Glucose 275 mg/dL (83-110); Potassium 4.4 mmol/L (3.5-5.1); Sodium 137 mmol/L (136-145)
[2025-02-18 06:55] LABS: Platelet Adequacy Comment Platelets Decreased; RBC Morphology Within Normal Limits
[2025-02-18] MEDS: Multivitamin W/ Minerals 1 TAB PO SCH (08:03)
[2025-02-18] MEDS: Aspirin Chewable 81 MG TAB PO SCH (08:03)
[2025-02-18] MEDS: Pantoprazole 40 MG DR.TAB PO SCH (08:03)
[2025-02-18 11:41] VITALS: BMI 25.5
[2025-02-18] MEDS: Phenol 177 ML BOT PO PRN (22:25)
[2025-02-19 05:08] LABS: #Basophils Less than 0.03 10x3/uL (0.0-0.2); #Eosinophils Less than 0.03 10x3/uL (0.0-0.7); #Monocytes 0.23 10x3/uL (0.11-0.59); #Neutrophils 5.06 10x3/uL (1.40-6.50); %Basophils 0.0 % (0.0-1.0); %Eosinophils 0.0 % (0.0-10.0); %Lymphocytes 14.7 % (21.0-51.0); %Monocytes 3.7 % (0.0-10.0); %Neutrophils 81.1 % (42.0-75.0); Hematocrit 38.7 % (42.0-52.0); Hemoglobin 12.8 g/dL (14.0-18.0); Mean Corpuscular Hemoglobin 26.9 pg (27.0-31.0); Mean Corpuscular Volume 81.5 fL (78.0-98.0); Platelet Count 127 10x3/uL (130-400); Red Blood Cell (RBC) Count 4.75 mill/uL (4.70-6.10); White Blood Cell (WBC) Count 6.24 10x3/uL (4.8-10.8)
[2025-02-19 05:21] LABS: Anion Gap 8 mmol/L (10-20); BUN (Urea Nitrogen) 33 mg/dL (8.4-25.7); Calc. Creatinine Clearance 67 mL/min (70-130); Calcium 8.8 mg/dL (7.8-10.44); Carbon Dioxide 20 mmol/L (23-31); Chloride 109 mmol/L (98-107); Glucose 251 mg/dL (83-110); Potassium 4.4 mmol/L (3.5-5.1); Sodium 133 mmol/L (136-145)
[2025-02-19 16:15] VITALS: TEMP 97.3
[2025-02-19 16:50] VITALS: BP 136/55
== END 2025-02-19 17:15 | disposition home or self-care (01) | DRG 871 ==
LOC: ERS 20:39 → ERHOLD 23:21 → SURG B 02-17 05:49
PROVIDERS: ADMIT Internal Medicine; ATTEND Internal Medicine
PROC: 3E03329 Introduction of Other Anti-infective into Peripheral Vein, Percutaneous Approach (ICD-10-PCS; principal; 2025-02-16)
PROC: 3E02340 Introduction of Influenza Vaccine into Muscle, Percutaneous Approach (ICD-10-PCS; 2025-02-17)
PROC: 3E0234Z Introduction of Serum, Toxoid and Vaccine into Muscle, Percutaneous Approach (ICD-10-PCS; 2025-02-17)
DX: A41.9 Sepsis, unspecified organism (principal); J18.9 Pneumonia, unspecified organism; U07.1 COVID-19; J96.01 Acute respiratory failure with hypoxia; E11.52 Type 2 diabetes mellitus with diabetic peripheral angiopathy with gangrene; I96 Gangrene, not elsewhere classified; Z66 Do not resuscitate; L89.620 Pressure ulcer of left heel, unstageable; L89.610 Pressure ulcer of right heel, unstageable; E78.5 Hyperlipidemia, unspecified; I10 Essential (primary) hypertension; I25.10 Atherosclerotic heart disease of native coronary artery without angina pectoris; K29.80 Duodenitis without bleeding; F03.90 Unspecified dementia, unspecified severity, without behavioral disturbance, psychotic disturbance, mood disturbance, and anxiety; R13.10 Dysphagia, unspecified; F17.220 Nicotine dependence, chewing tobacco, uncomplicated; F17.210 Nicotine dependence, cigarettes, uncomplicated; I44.0 Atrioventricular block, first degree; I25.2 Old myocardial infarction; Z95.5 Presence of coronary angioplasty implant and graft; Z86.73 Personal history of transient ischemic attack (TIA), and cerebral infarction without residual deficits; Z98.890 Other specified postprocedural states; Z95.1 Presence of aortocoronary bypass graft; Z79.899 Other long term (current) drug therapy; Z91.81 History of falling; Z23 Encounter for immunization
CPT/HCPCS: 36415; 36416; 51701; 71045; 71275; 80048; 80053; 81001; 82805; 83605; 83880; 84484; 85025; 86141; 87040; 87070; 87086; 87149; 87205; 87428; 87449; 87899; 93005; 93010; 94640; 94760; 96365; 96367; 97139; J1100; J1644; J1815; J2543; J3375; J7030; J8499; Q9967